=== PATIENT | male | born 1960 | race Caucasian/White ===

== ENCOUNTER 2023-12-17 15:45 | Emergency (ER) | payer OTHER, SELFPAY ==
[2023-12-17 15:51] VITALS: BP 114/81
[2023-12-17 16:23] LABS: % Basophils 0.6 % (0-2); % Immature Granulocytes 0.6 % (0-0.5); % Lymphocytes 17.8 % (20.5-51.1); % Monocytes 5.8 % (1.7-9.3); % Neutrophils 73.2 % (42.2-75.2); Absolute Basophils 0.1 10^3/uL (0-0.2); Absolute Eosinophils 0.2 10^3/uL (0-0.7); Absolute Immature Granulocytes 0.1 10^3/uL (0-0.05); Absolute Lymphocytes 1.8 10^3/uL (1.2-3.4); Absolute Monocytes 0.6 10^3/uL (0.1-0.6); Absolute Neutrophils 7.3 10^3/uL (1.4-6.5); Hematocrit 45.6 % (39.0-52.0); Mean Corp Hgb Conc. 35.1 g/dL (33.0-37.0); Mean Corpuscular Hgb 30.6 pg (27.0-31.0); Mean Corpuscular Volume 87.2 fL (80.0-94.0); Nucleated Red Blood Cells % 0 % (-); Platelet Count 199 10^3/uL (130-400); Red Blood Cell Count 5.23 10^6/uL (4.70-6.10); Red Cell Dist. Width 12.4 % (11.5-14.5)
[2023-12-17 16:37] LABS: ALT (SGPT) 22 U/L (0-50); AST (SGOT) 21 U/L (17-59); Albumin 4.1 g/dl (3.5-5.0); Alkaline Phosphatase 78 U/L (38-126); Blood Urea Nitrogen 23 mg/dl (9-20); Calcium 10.5 mg/dl (8.4-10.2); Carbon Dioxide 21 mmol/L (22-30); Chloride 100 mmol/L (98-107); Glucose 238 mg/dl (70-99); Potassium 4.9 mmol/L (3.5-5.1); Sodium 137 mmol/L (135-145); Total Bilirubin 0.7 mg/dl (0.2-1.3); Total Protein 6.9 g/dl (6.3-8.2); eGFR > 60.00
[2023-12-17 16:40] LABS: COVID-19 Antigen Negative (Negative)
--- NOTE | 2023-12-17 18:05 | ED.GENMED ---
History of Present Illness
General
Chief Complaint: Breathing Problem
Source: patient
Time Seen by Provider: 12/17/23 17:32
Travel History
Have you had any contact with someone who has COVID-19?: No
Do you have any symptoms of coronavirus? Fever > 100 degrees, chills, cough, shortness of breath, sore throat, loss of taste or smell, muscle aches, or headache?: Yes
Symptoms:: sob
History of Present Illness
History of Present Illness:
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 Triage states that patient experienced shortness of breath at noon,
notes that he woke up at noon today which is when he started to feel unwell but overall states he does not feel short of breath it is more of a overall fatigue. Patient notes that his blood sugars were elevated at the battery repairer and that he
feels as if he has been urinating more frequently as well as been experiencing polydipsia. Patient denies any fevers, chills, rigors, nausea, vomiting, bowel changes, chest pain, palpitations, diaphoresis, exertional dyspnea, orthopnea, lower
extremity edema. Overall patient was a somewhat difficult historian, unable to tell me the name of his battery repairer or elaborate on his symptoms any further. He does note some recent difficulty in controlling his diabetes and states that he was
given a new type of monitor to watch his blood sugars as he had not been readily compliant with fingerstick checks.
Past History
Past History
ED Past Medical History: HTN and IDDM
ED Past Surgical History: Tonsilectomy
Patient has exhibited threatening behavior?: No
PSI?: No
Social History
Tobacco: Non-smoker
Alcohol: Occasional
Drug: None
Personal: Single
Living: with family
Review of Systems
Review of Systems
All Other Systems: ROS reviewed and negative except as documented in HPI and ROS
Phy Exam
Physical Exam
Physical Exam:
GENERAL: Alert , in no apparent distress, appears older than stated age
EYE: Clear conjunctiva
NECK: Supple
ENT: o/p clr, mmm.
CARDIAC: Borderline tachycardic rate and rhythm
LUNGS: Clear breath sounds bilaterally, no acute respiratory distress, no wheezes/rales/rhonchi
ABDOMEN: Soft, without focal tenderness, no r/g, no cvat
NEUROLOGICAL: Alert and orientedx3
SKIN: Warm and dry, skin intact.
MUSCULOSKELETAL: No edema, well perfused.
PSYCH: Normal and appropriate interaction.
Scores
Heart Failure Risk
Heart Failure Risk Score: Not Applicable
Heart Score for Chest Pain Patients
STEMI patient?: Not applicable
Withdrawal Assessment of Alcohol
Withdrawal Assessment Completed?: Not applicable
Course
Orders/Labs/Results
Orders:
Orders
12/17/23 16:04
COVID-19 Antigen Urgent
Source: Nasal Swab
Complete Blood Count/With Diff Urgent
Comprehensive Metabolic Panel Urgent
Influenza A+B Rapid Molecular Urgent
MIKKI Source: Nasal Swab
Specimen Description:
12/17/23 17:46
Urinalysis Reflex To Culture Urgent
0.9% Sodium Chloride 1000 ml [Nss] 1,000 ml IV BOLUS
12/17/23 17:47
Electrocardiogram (*1) Urgent
Reason for Study: Shortness of Breath
EKG- Treatment ONCE
CR Chest - 2 Views Urgent
Comment:
Reason For Exam: fatigue
12/17/23 18:10
0.9% Sodium Chloride 1000 ml [Nss] 1,000 ml IV BOLUS
12/17/23 18:17
B-Hydroxybutyrate Urgent
Abnormal Lab Results
12/17/23 12/17/23
16:04 18:17
MPV 11.0 H fL
(7.4-10.4)
Abs Immat Gran (auto) 0.1 H 10^3/uL
(0-0.05)
Absolute Neuts (auto) 7.3 H 10^3/uL
(1.4-6.5)
Immature Gran % 0.6 H %
(0-0.5)
Lymphocytes % 17.8 L %
(20.5-51.1)
Carbon Dioxide 21 L mmol/L
(22-30)
BUN 23 H mg/dl
(9-20)
Glucose 238 H mg/dl
(70-99)
Calcium 10.5 H mg/dl
(8.4-10.2)
B-Hydroxybutyrate 0.32 H mmol/L
(0.02-0.27)
12/17/23 16:04
12/17/23 16:04
Vital Signs
Initial and Last Documented VS:
Initial Vital Signs
Temp Pulse Resp BP Pulse Ox
98.2 F 108 18 114/81 99
12/17/23 15:51 12/17/23 15:51 12/17/23 15:51 12/17/23 15:51 12/17/23 15:51
Last Documented Vital Signs
Temp Pulse Resp BP Pulse Ox
98.2 F 89 19 105/79 97
12/17/23 15:51 12/17/23 19:45 12/17/23 19:45 12/17/23 20:18 12/17/23 20:18
Bolter Helper consulted with Physician
Bolter Helper consulted with physician?: Yes
Name of Physician Consulted: Romy
MDM/Problems Addressed
Differential Diagnosis Includes:
Diabetic complications such as DKA, HHNK, hyperglycemia without acidosis, UTI, COVID or other viral etiology
MDM/Problems Addressed:
63-year-old male present emergency department for evaluation at the request of his battery repairer but overall the history is a little bit unclear as patient reportedly said he felt short of breath but upon questioning he is denying shortness of
breath and only stating he just did not feel very well. Patient was discussing his blood sugars and that that was the reason for being sent to the hospital as they were not under control. Patient states in the office his blood sugar was around
250-260. Labs have been initiated from triage and do reveal a glucose of 238. Patient does have an anion gap of 16 and bicarb is slightly low at 21. COVID flu testing were negative. Will add on a urinalysis, beta hydroxybutyrate. Will treat
with fluids for the time being. Reassessment following.
*Critical Care Note
Total Time (30-74mins, 75-104mins- exclusive of procedures): Not Applicable
Patient Management
Discussion with other providers: PCP
Escalation/DeEscalation of care consider admission/obs:
Patient's remaining labs are largely unremarkable. He was given IV fluids here, chest x-ray unremarkable patient states he feels better. Overall I do feel it is reasonable for patient to be discharged home and continued outpatient workup and close
glucose monitoring. I notified patient's primary care physician about workup in the ED to help facilitate continued outpatient management. Patient and family are aware of return precautions but otherwise stable for discharge home.
ED Attending Note
-
Portions of this chart may have been created with voice recognition software.� Occasional wrong word or��sound alike� substitutions may have occurred due to the inherent limitations of voice recognition software.
Discharge Plan
Departure
Patient Disposition: Home (Routine Discharge)
Date of Disposition: 12/17/23
Time of Disposition: 20:10
Patient with high blood pressure during this ER visit?: No
Discharge Problem:
Diabetes mellitus with hyperglycemia
Instructions: Diabetes and diet
Prescriptions:
No Action
aspirin 325 mg Tablet
325 mg PO DAILY
Prevagen 10 MG capsule
1 cap PO WEEKLY
insulin aspart U-100 [Novolog FlexPen U-100 Insulin] 100 unit/mL (3 mL) Insulin Pen
14 units SC AC 30 Days Qty: 12.6 0RF
insulin glargine [Lantus U-100 Insulin] 1,000 UNITS/10 ML solution
35 unit SC HS 30 Days Qty: 10.5 0RF
metoprolol tartrate 25 MG tablet
25 mg PO BID 30 Days Qty: 60 0RF
insulin glargine [Lantus U-100 Insulin] 100 unit/mL solution
35 unit SC QPM Qty: 10 0RF
Referrals:
Bria Williamson MD [Family Provider] -
Interventions
Interventions:
*Risk Screen - Suicide Last Done: 12/17/23 15:51
*General Assessment Last Done: 12/17/23 15:51
*Neglect/Abuse Screening Last Done: 12/17/23 15:51
*ED COVID-19 Vaccine History Last Done: 12/17/23 15:51
ED- Cardiac Assessment Last Done: 12/17/23 18:20
ED- Pulmonary Assessment Last Done: 12/17/23 18:20
[2023-12-17] MEDS: NSS 1000 IV (18:18)
[2023-12-17 18:47] LABS: B-Hydroxybutyrate 0.32 mmol/L (0.02-0.27)
[2023-12-17 20:18] VITALS: BP 105/79
== END 2023-12-17 20:36 | disposition home or self-care (01) ==
LOC: EMR 15:45
PROVIDERS: Emergency Medicine; Physician Assistant Medical; EMERGENCY PHYSICIAN Emergency Medicine; FAMILY PHYSICIAN Emergency Medicine
DX: E11.65 Type 2 diabetes mellitus with hyperglycemia (principal); Z11.52 Encounter for screening for COVID-19; Z79.4 Long term (current) use of insulin
CPT/HCPCS: 99285; 96360; 71046; 80053; 82010; 85025; 87502; 87811; 93005

== ENCOUNTER 2024-04-28 21:07 | Emergency (ER) | payer OTHER, SELFPAY ==
[2024-04-28 21:28] VITALS: BP 90/59
[2024-04-28 21:39] LABS: Glucose - Point of Care 152 mg/dl (70-99)
[2024-04-28 21:46] LABS: % Basophils 0.4 % (0-2); % Eosinophils 2.3 % (0-6); % Immature Granulocytes 0.4 % (0-0.5); % Lymphocytes 13.5 % (20.5-51.1); % Monocytes 4.7 % (1.7-9.3); % Neutrophils 78.7 % (42.2-75.2); Absolute Eosinophils 0.2 10^3/uL (0-0.7); Absolute Lymphocytes 1.2 10^3/uL (1.2-3.4); Absolute Monocytes 0.4 10^3/uL (0.1-0.6); Absolute Neutrophils 7.1 10^3/uL (1.4-6.5); Hematocrit 44.4 % (39.0-52.0); Hemoglobin 15.8 g/dL (13.0-18.0); Mean Corp Hgb Conc. 35.6 g/dL (33.0-37.0); Mean Corpuscular Volume 84.3 fL (80.0-94.0); Mean Platelet Volume 10.6 fL (7.4-10.4); Nucleated Red Blood Cells % 0 % (-); Platelet Count 186 10^3/uL (130-400); Red Blood Cell Count 5.27 10^6/uL (4.70-6.10); Red Cell Dist. Width 12.7 % (11.5-14.5)
[2024-04-28 22:20] LABS: Glucose - Point of Care 182 mg/dl (70-99)
[2024-04-28 22:30] VITALS: BMI 31.7
[2024-04-28 22:47] VITALS: BP 102/57
[2024-04-28 23:00] VITALS: BP 105/73
[2024-04-28 23:16] LABS: ALT (SGPT) 33 U/L (0-50); AST (SGOT) 26 U/L (17-59); Albumin 4.1 g/dl (3.5-5.0); Alkaline Phosphatase 74 U/L (38-126); Blood Urea Nitrogen 14 mg/dl (9-20); Calcium 9.3 mg/dl (8.4-10.2); Carbon Dioxide 24 mmol/L (22-30); Chloride 103 mmol/L (98-107); Estimated Creatinine Clearance 103 ml/min; Glucose 167 mg/dl (70-99); Potassium 4.3 mmol/L (3.5-5.1); Sodium 136 mmol/L (135-145); Total Bilirubin 0.6 mg/dl (0.2-1.3); Total Protein 6.8 g/dl (6.3-8.2); eGFR > 60.00
[2024-04-28 23:23] LABS: Troponin I < 0.012 ng/ml
[2024-04-29] VITALS (11 sets, daily range): BP systolic 101–125; BP diastolic 76–89; PULSE 85–95
--- NOTE | 2024-04-29 02:27 | ED.GENMED ---
History of Present Illness
General
Chief Complaint: Dizziness
Source: patient and family
Exam Limitations: none
Time Seen by Provider: 04/28/24 23:00
Nursing documentation reviewed up to this point in time: agreed with
History of Present Illness
History of Present Illness:
63-year-old male past medical history of diabetes presenting to the emergency department today with concerns of lightheadedness dizziness. He claims that he lost his balance after feeling dizzy earlier today and fell against the wall. He had
trouble standing up due to his underlying balance issues called EMS that brought him into the ER. He denies any ongoing symptoms at this point otherwise feels well. Denies any chest pain palpitations or shortness of breath otherwise.
Past History
Past History
ED Past Medical History: HTN and IDDM
ED Past Surgical History: Tonsilectomy
Patient has exhibited threatening behavior?: No
PSI?: No
Social History
Tobacco: Non-smoker
Alcohol: Occasional
Drug: None
Personal: Single
Living: with family
Review of Systems
Review of Systems
Allergies reviewed?: Yes
All Other Systems: ROS reviewed and negative except as documented in HPI and ROS
Phy Exam
Physical Exam
Physical Exam:
GENERAL: Alert , in no apparent distress
EYE: pupils equal and reactive
NECK: Supple, no significant adenopathy.
ENT: o/p clr, mmm.
CARDIAC: Regular rate and rhythm .
LUNGS: Clear breath sounds bilaterally, no acute respiratory distress, no wheezes/rales/rhonchi
ABDOMEN: Soft, without focal tenderness, no r/g, no cvat
NEUROLOGICAL: Alert and oriented, no focal neuro deficits
SKIN: Warm and dry, skin intact.
MUSCULOSKELETAL: No edema, well perfused.
PSYCH: Normal and appropriate interaction.
Course
Orders/Labs/Results
Orders:
Orders
04/28/24 21:32
Electrocardiogram (*1) Urgent
Reason for Study: Syncope
EKG- Treatment ONCE
04/28/24 21:39
Complete Blood Count/With Diff Urgent
04/28/24 22:34
Comprehensive Metabolic Panel Urgent
Troponin I Urgent
04/28/24 23:41
Orthostatic VS- Treatment ONCE
Vital Signs- Treatment ONCE
Frequency: Once
Abnormal Lab Results
04/28/24 04/28/24 04/28/24
21:31 21:39 22:19
MPV 10.6 H fL
(7.4-10.4)
Absolute Neuts (auto) 7.1 H 10^3/uL
(1.4-6.5)
Neutrophils % 78.7 H %
(42.2-75.2)
Lymphocytes % 13.5 L %
(20.5-51.1)
Glucose
POC Glucose 152 H mg/dl 182 H mg/dl
(70-99) (70-99)
04/28/24
22:34
MPV
Absolute Neuts (auto)
Neutrophils %
Lymphocytes %
Glucose 167 H mg/dl
(70-99)
POC Glucose
04/28/24 21:39
04/28/24 22:34
Vital Signs
Initial and Last Documented VS:
Initial Vital Signs
Temp Pulse Resp BP Pulse Ox
97.6 F 109 19 90/59 93
04/28/24 21:28 04/28/24 21:28 04/28/24 21:28 04/28/24 21:28 04/28/24 21:28
Last Documented Vital Signs
Temp Pulse Resp BP Pulse Ox
97.6 F 109 19 90/59 93
04/28/24 21:28 04/28/24 21:28 04/28/24 21:28 04/28/24 21:28 04/28/24 21:28
MDM/Problems Addressed
MDM/Problems Addressed:
63-year-old male presenting to the emergency department today with concerns of an episode where he felt dizzy lost his balance and slid down the wall at his home called 911 to help him get up and was brought to the ER denies any ongoing symptoms no
chest pain shortness of breath or additional concerns at this point feels normal. EKG is unchanged labs unremarkable troponin negative. Negative orthostatics here. Asymptomatic for multiple hours in the ER stable for outpatient management and
close outpatient follow-up return precautions given.
*Critical Care Note
Total Time (30-74mins, 75-104mins- exclusive of procedures): Not Applicable
ED Attending Note
-
Portions of this chart may have been created with voice recognition software.� Occasional wrong word or��sound alike� substitutions may have occurred due to the inherent limitations of voice recognition software.
Discharge Plan
Departure
Patient Disposition: Home (Routine Discharge)
Date of Disposition: 04/29/24
Time of Disposition: 02:29
Patient with high blood pressure during this ER visit?: No
Condition: Good
Covid-19: Not Applicable
Discharge Problem:
Lightheadedness
Instructions: Dizziness, Nonvertigo, (DC)
Prescriptions:
No Action
aspirin 325 mg Tablet
325 mg PO DAILY
Prevagen 10 MG capsule
1 cap PO WEEKLY
insulin aspart U-100 [Novolog FlexPen U-100 Insulin] 100 unit/mL (3 mL) Insulin Pen
14 units SC AC 30 Days Qty: 12.6 0RF
insulin glargine [Lantus U-100 Insulin] 1,000 UNITS/10 ML solution
35 unit SC HS 30 Days Qty: 10.5 0RF
metoprolol tartrate 25 MG tablet
25 mg PO BID 30 Days Qty: 60 0RF
insulin glargine [Lantus U-100 Insulin] 100 unit/mL solution
35 unit SC QPM Qty: 10 0RF
Referrals:
Bria Williamson MD [Family Provider] -
Activity Restrictions/Additional Instructions:
You came to the emergency department today with concerns of dizziness and losing her balance. Here your labs are normal and your vital signs improving. Please follow close with your primary care doctor. Return to the emergency department for any
worsening, new or concerning symptoms.
Interventions
Interventions:
*Risk Screen - Suicide Last Done: 04/28/24 22:23
*General Assessment Last Done: 04/28/24 22:23
*Neglect/Abuse Screening Last Done: 04/28/24 22:23
*ED COVID-19 Vaccine History Last Done: 04/28/24 22:23
ED- Neurological Assessment Last Done: 04/28/24 22:23
ED Swallowing Screen Last Done: 04/29/24 02:00
Discharge Date and Time
Print Language: GEORGIAN
== END 2024-04-29 03:00 | disposition home or self-care (01) ==
LOC: EMR 21:07
PROVIDERS: EMERGENCY PHYSICIAN Emergency Medicine; FAMILY PHYSICIAN Emergency Medicine
DX: R42 Dizziness and giddiness (principal); E11.9 Type 2 diabetes mellitus without complications
CPT/HCPCS: 99284; 80053; 82962; 84484; 85025; 93005

== ENCOUNTER 2024-05-10 03:30 | Inpatient (IN) | payer OTHER, SELFPAY ==
[2024-05-09 22:13] VITALS: BMI 31.1
[2024-05-09 22:14] VITALS: BP 102/78
[2024-05-09 22:23] LABS: Glucose - Point of Care 181 mg/dl (70-99)
--- NOTE | 2024-05-09 23:16 | PHANOTE ---
Med Rec Note:
Novolog left unconfirmed due to Pt stated he takes 30 units, but per latest notes in [facility] he's supposed to be on 4 units with meals.
[2024-05-10] VITALS (13 sets, daily range): BP systolic 90–144; BP diastolic 64–99; PULSE 89–121; BMI 31.2
[2024-05-10] MEDS: NSS 1000 IV ×4 (00:23→16:52)
[2024-05-10 00:33] LABS: % Basophils 0.3 % (0-2); % Eosinophils 0.5 % (0-6); % Immature Granulocytes 0.3 % (0-0.5); % Lymphocytes 11.1 % (20.5-51.1); % Monocytes 4.1 % (1.7-9.3); % Neutrophils 83.7 % (42.2-75.2); Absolute Lymphocytes 0.9 10^3/uL (1.2-3.4); Absolute Monocytes 0.3 10^3/uL (0.1-0.6); Absolute Neutrophils 6.7 10^3/uL (1.4-6.5); Hematocrit 45.7 % (39.0-52.0); Hemoglobin 15.9 g/dL (13.0-18.0); Mean Corp Hgb Conc. 34.8 g/dL (33.0-37.0); Mean Corpuscular Hgb 29.8 pg (27.0-31.0); Mean Corpuscular Volume 85.6 fL (80.0-94.0); Mean Platelet Volume 10.9 fL (7.4-10.4); Nucleated Red Blood Cells % 0 % (-); Platelet Count 165 10^3/uL (130-400); Red Blood Cell Count 5.34 10^6/uL (4.70-6.10)
--- NOTE | 2024-05-10 00:37 | ED.GENMED ---
History of Present Illness
General
Chief Complaint: Fall
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
Exam Limitations: none
Time Seen by Provider: 05/09/24 23:37
Nursing documentation reviewed up to this point in time: agreed with
History of Present Illness
History of Present Illness:
This is a 63-year-old gentleman who has history of insulin requiring diabetes, hyperlipidemia, hypertension who presents with intermittent lightheadedness, dizziness that is much worse with standing, worse with ambulation and he has suffered several
falls over the past week and a half.
Evaluated in this ED April 28 with December similar complaint of lightheadedness, losing his balance upon standing and falling against a wall. Noted to be mildly hypotensive during that visit but orthostatic vital signs reportedly negative. Labs
are unremarkable save for elevated random glucose. He was discharged to home.
Since that visit patient has suffered a loss of balance and fall onto his knees several days ago sustaining abrasions to bilateral knees.
Tonight after getting out of his car he felt lightheaded, lost his balance and fell again onto his knees and admits to striking his head mildly on the ground. No loss of consciousness.
Patient states he has been eating and drinking normally and has added Gatorade on a daily basis.
He does admit to mild fatigue, generalized weakness intermittently and admits that he did not get out of bed at all yesterday as he just was not feeling well, overall weak.
He has not had a fever nor chills, no cough nor shortness of breath, no chest pain or palpitations, denies headache, denies neck nor back pain.
He does note abrasions to bilateral knees after fall a few days ago. He denies knee pain nor hip pain, no joint pain with ambulation.
Unsure as to his last Tdap.
Along with insulin he has been maintained on Mounjaro and admits to at least 14 pound weight loss over the past 6 months.
He takes no anticoagulants save for aspirin.
Past History
Past History
ED Past Medical History: HTN, Hypercholesterolemia, IDDM and Other (Right bundle branch block, diabetic peripheral neuropathy)
ED Past Surgical History: Tonsilectomy
Patient has exhibited threatening behavior?: No
PSI?: No
Social History
Tobacco: Non-smoker
Alcohol: Occasional
Drug: None
Personal: Single
Living: with roommate
Employment: Retired
Family History
Family History: Other (Noncontributory)
Phy Exam
Physical Exam
Physical Exam:
GENERAL: 63-year-old gentleman appears his stated age, awake and alert, pleasant, appears in no acute distress. Moderately disheveled. Cooperative.
EYE: pupils equal and reactive. anicteric. The head is normocephalic, atraumatic.
NECK: Supple, nontender, no meningismus, no significant adenopathy.
ENT: posterior pharynx is clear, oral mucosa is mildly dry. TM clear b/l, nares patent.
CARDIAC: Regular rate and rhythm. no murmur.
LUNGS: Clear breath sounds bilaterally, no acute respiratory distress, no wheezes/rales/rhonchi
ABDOMEN: Soft, nondistended, without focal tenderness, no r/g, no cvat. normoactive BS.
BACK: No midline bony tenderness.
NEUROLOGICAL: Alert and oriented x3, no focal neuro deficits. Motor strength is 5/5 bilaterally. Gross sensation is intact.
SKIN: Warm and dry, mildly pale in color, subacute skin abrasions bilateral knees, left posterior elbow.
MUSCULOSKELETAL: Trace pretibial edema bilateral lower extremities. Peripheral pulses are full and equal b/l. No palpable tenderness.
PSYCH: Normal and appropriate interaction.
Course
Orders/Labs/Results
Orders:
Orders
05/09/24 23:38
Orthostatic VS- Treatment ONCE
05/09/24 23:39
Electrocardiogram (*1) Urgent
Reason for Study: Vertigo / Dizzy
EKG- Treatment ONCE
Complete Blood Count/With Diff Urgent
Comprehensive Metabolic Panel Urgent
TSH Reflex To Free T4 Urgent
Troponin I Urgent
Urinalysis Reflex To Culture Urgent
05/09/24 23:47
Tetanus/Diphth/Acelpertussis [Adacel] 0.5 ml IM .ONCE ONE
05/10/24 00:00
CT Head W/o Iv Contrast Urgent
Reason For Exam: DIZZY, FALL, HEAD INJURY
05/10/24 00:23
0.9% Sodium Chloride 500 ml [Nss] 1,000 ml IV ONCE
05/10/24 00:48
0.9% Sodium Chloride 1000 ml [Nss] 1,000 ml IV BOLUS
Abnormal Lab Results
05/09/24 05/10/24 05/10/24
22:21 00:14 00:15
MPV 10.9 H fL
(7.4-10.4)
Absolute Neuts (auto) 6.7 H 10^3/uL
(1.4-6.5)
Absolute Lymphs (auto) 0.9 L 10^3/uL
(1.2-3.4)
Neutrophils % 83.7 H %
(42.2-75.2)
Lymphocytes % 11.1 L %
(20.5-51.1)
Carbon Dioxide 21 L mmol/L
(22-30)
BUN 26 H mg/dl
(9-20)
Glucose 137 H mg/dl
(70-99)
POC Glucose 181 H mg/dl
(70-99)
05/10/24 00:14
05/10/24 00:15
Vital Signs
Initial and Last Documented VS:
Initial Vital Signs
Temp Pulse Resp BP Pulse Ox
98.5 F 115 18 102/78 99
05/09/24 22:14 05/09/24 22:14 05/09/24 22:14 05/09/24 22:14 05/09/24 22:14
Last Documented Vital Signs
Temp Pulse Resp BP Pulse Ox
98.5 F 98 37 94/69 95
05/09/24 22:14 05/10/24 00:20 05/10/24 00:20 05/10/24 00:20 05/10/24 00:26
MDM/Problems Addressed
Differential Diagnosis Includes:
Concern for orthostatic hypotension, vertigo, anemia, electrolyte abnormality, CVA, arrhythmia, thyroid disorder.
Patient noted to be mildly hypotensive. Similar low blood pressure noted on ED visit 10 days ago.
Will recheck orthostatic vital signs, will repeat labs, troponin, TSH.
Will check EKG, CT of the head.
Chronic conditions affecting care: DM and HTN
*Radiology
Radiology exam reviewed: radiology read reviewed (CT of the head shows no acute intracranial abnormality.)
*Pulse Oximetry
Patient hypoxic: no
*EKG
Interpreted by ED Provider?: Yes
Comparison EKG: no changes (Unchanged from previous April 28, 2024)
Rate: normal
Rhythm: sinus
[place]: left axis deviation
Interval: first degree heart block (Borderline first-degree heart block)
QRS Pattern: right bundle branch block
Ischemia: no ischemia
*Chainman Interpretation
Rate: normal
Interpretation: normal
Rhythm: sinus
*Critical Care Note
Total Time (30-74mins, 75-104mins- exclusive of procedures): Not Applicable
Update Note
Update Note:
Orthostatic vital signs are positive and patient is noted to be significantly unsteady while standing.
Labs show mild prerenal azotemia otherwise unremarkable. Azotemia has trended up compared to previous labs April 28. TSH is normal. Normal CBC. Negative troponin.
EKG similar and unchanged from previous.
CT of the head shows no acute intracranial abnormality but does show chronic small vessel ischemic disease and chronic lacunar infarcts in the right basal ganglia, similar findings noted on CT of the head 2021.
Symptoms could certainly be orthostasis in nature but he has multiple risk factors for cerebrovascular disease and due to significant unsteadiness with standing, frequent falls he is at significant risk for recurrent falls and thus will require
acute hospitalization for further evaluation.
ED Attending Note
-
Portions of this chart may have been created with voice recognition software.� Occasional wrong word or��sound alike� substitutions may have occurred due to the inherent limitations of voice recognition software.
Discharge Plan
Departure
Patient Disposition: Admit
Date of Disposition: 05/10/24
Time of Disposition: 02:20
Admit to: Telemetry
Admit to doctor: Lon
Presentation/result/management discussed w/ accepting MD/DO: Hospitalist
Condition: Fair
Discharge Problem:
Recurrent falls, Generalized weakness, Orthostatic hypotension, subacute abrasions b/l knees, subacute abrasion left elbow
Prescriptions:
No Action
aspirin 325 mg Tablet
325 mg PO .3X WEEKLY
atorvastatin 10 mg tablet
10 mg PO DAILY@1400
metformin 1,000 mg tablet
1,000 mg PO DAILY@1400
losartan 25 mg tablet
25 mg PO DAILY@1400
Jardiance 10 mg tablet
10 mg PO DAILY@1400
Mounjaro 5 mg/0.5 mL pen injector
5 mg SC WE
insulin glargine [Lantus U-100 Insulin] 1,000 UNITS/10 ML solution
30 unit SC HS
insulin aspart U-100 [Novolog FlexPen U-100 Insulin] 100 unit/mL (3 mL) insulin pen
4 units SC MEALS
Patient Comments:
05/09/2024: Pt stated he takes 30 units, but per latest notes in [facility] he's supposed to be on 4 units with meals.
Referrals:
Bria Williamson MD [Family Provider] -
Interventions
Interventions:
*Risk Screen - Suicide Last Done: 05/09/24 22:14
*General Assessment Last Done: 05/09/24 22:14
*Neglect/Abuse Screening Last Done: 05/09/24 22:14
ED- Fall Risk Assessment Last Done: 05/10/24 00:26
*ED COVID-19 Vaccine History Last Done: 05/09/24 22:14
ED-Musculoskeletal Assessment Last Done: 05/09/24 22:13
ED- Neurological Assessment Last Done: 05/09/24 22:13
ED-Skin Assessment Last Done: 05/09/24 22:13
Discharge Date and Time
Print Language: SPANISH
[2024-05-10 00:48] LABS: ALT (SGPT) 33 U/L (0-50); AST (SGOT) 26 U/L (17-59); Albumin 4.5 g/dl (3.5-5.0); Alkaline Phosphatase 74 U/L (38-126); Blood Urea Nitrogen 26 mg/dl (9-20); Carbon Dioxide 21 mmol/L (22-30); Chloride 104 mmol/L (98-107); Estimated Creatinine Clearance 90 ml/min; Glucose 137 mg/dl (70-99); Potassium 4.4 mmol/L (3.5-5.1); Sodium 139 mmol/L (135-145); Total Bilirubin 0.5 mg/dl (0.2-1.3); Total Protein 7.2 g/dl (6.3-8.2); eGFR > 60.00
[2024-05-10 01:04] LABS: Troponin I < 0.012 ng/ml
[2024-05-10] MEDS: ADACEL 0.5 ML IM (01:09)
[2024-05-10] MEDS: NSS IV (01:11)
[2024-05-10 01:23] LABS: TSH Reflex To Free T4 0.51 uIU/ml (0.47-4.68)
--- NOTE | 2024-05-10 03:12 | HPS.HSE ---
Family Physician
-
Family Physician: Bria Williamson MD
Chief Complaint
-
weakness, lightheaded and falls
History of Present Illness
HPI
63M HX IRDM, HLD, HTN , Obesity, mild cognitive impairment seen at ER for evaluation of intermittent lightheadedness
Intermittent dizzy spells with falls
- associated with standing and walking
- unsteady on fet with weakness
- report multiple falls BENEFITS ADVISOR over last week
- Tonight , he felt lightheadedness after getting out of car , had fall with striking head on the ground.
- denied No loss of consciousness.
ROS
Denied CP
Denied SoB
Denied N/V/D
Medical History
Past Medical History
Past Medical History: Reports HTN
Past Surgical History: Reports Tonsilectomy
Social History
Tobacco: Non-smoker
Alcohol: None
Drug: None
Personal: Single
Living: With [facility] ([place])
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
Family History
Family History: Early CAD (father Sarah 58 ) and Other (Brother age 80 unsure)
Allergies / Home Medications
Allergies reflects when Allergies were last updated in [facility].
Home Medications with original date entered in [facility]
Allergy/Medication List:
Allergies
Allergy/AdvReac Type Severity Reaction Status Date / Time
No Known Allergies Allergy Unverified 12/30/21 03:11
Home Medications
insulin aspart U-100 100 unit/mL (3 mL) subcutaneous pen (Novolog FlexPen U-100 Insulin aspart) 20 units (0.2 mL) SC AC 01/05/22
metoprolol tartrate 25 mg tablet 25 mg PO BID 01/05/22
insulin glargine 100 unit/mL subcutaneous solution (Lantus U-100 Insulin) 35 units (0.35 mL) SC DAILY@2200 01/07/22
Pregaven 1 cap PO DAILY 12/20/22
aspirin 325 mg tablet 325 mg PO DAILY 12/20/22
Review of Systems
-
History Source: Patient
A 12 point ROS was completed and negative except as noted: Yes
Constitutional: Reports Fatigue and Other (Unkempt appearance-reports showers once a week)
EENT: Reports Other (Dry mouth); Denies Sore Throat or Runny Nose
Respiratory: Denies Cough or Trouble Breathing
Cardiac: Denies Chest Pain, Diaphoresis, Palpitations or Syncope
Abdomen/GI: Denies Abdominal Pain, Nausea, Vomiting, Diarrhea, Constipated or Bloody Stools
: Denies Dysuria, Frequency, Flank Pain, Incontinence, Difficulty Voiding, Bleeding or Dark Urine
Musculoskeletal: Denies Joint Pain, Joint Swelling or Edema
Skin: Reports Other (Abrasion to left knee, healing contusion to right lower extremity, dried skin scales to right lower extremity); Denies Itching or Rash
Neurological: Reports Dizzy and Weakness (Generalized); Denies Headache
Endocrine: Denies Polyuria or Polydipsia
Hematologic/Lymphatic: Reports No Symptoms
Psych: Reports Calm
Physical Exam
Vital Signs
Vital Signs
Temp Pulse Resp BP Pulse Ox
98.5 F 93 18 113/77 91
05/09/24 22:14 05/10/24 01:00 05/10/24 01:00 05/10/24 01:00 05/10/24 01:00
Physical Exam
General: Comfortable, Conversant, Obese and Other (Unkept appearance); No Pain, Fever or Chills
HEENT: NormoCephalic, Anicteric and Other (Dry oral mucosa)
Respiratory: Clear; No Wheezes, Rales or Rhonchi
Cardiac: S1/S2; No Murmur, Rub, Gallop or Peripheral Edema
Breast: Deferred by me
GI: Soft, Non Tender, Non Distended, Normal Bowel Sounds, No Hepatosplenomegaly and Other (Protuberant abdomen)
Rectal: Deferred by Provider
Musculoskeletal: No Clubbing, No Cyanosis and No Edema
Skin: Warm, Dry and Other ( skin abrasions bilateral knees, left posterior elbow.); No Rash
Neuro: AO x 3 (Poor insight), No Motor Deficits and Nonfocal/grossly intact; No Slurred Speech, Facial Droop or Tremors
Psych: Calm
Laboratory Results
-
05/10/24 00:14
05/10/24 00:15
Laboratory Results
Total Bilirubin 0.5 mg/dl (0.2-1.3) 05/10/24 00:15
AST 26 U/L (17-59) 05/10/24 00:15
ALT 33 U/L (0-50) 05/10/24 00:15
Alkaline Phosphatase 74 U/L (38-126) 05/10/24 00:15
Troponin I < 0.012 ng/ml 05/10/24 00:14
Data Reviewed
-
CT Scan: Report Reviewed by me
Medical Tests (Nuc Med, Echo, EKG etc): Report Reviewed by me
Lab Data: Labs Reviewed by me
Old Records: Reviewed
Impression/Plan
-
Reviewed VS: Afebrile, HR 90s BP 90/75 --> 113/77 POx mid 90s
Data
Unremarkable CBC
CO2 21
BUN 26
unremarkable Cr and eGFR
NEG TPNI
TSH 0.51
BG 181
EKG report
NORMAL SINUS RHYTHM
LEFT AXIS DEVIATION
RIGHT BUNDLE BRANCH BLOCK
ABNORMAL ECG
WHEN COMPARED WITH ECG OF 28-APR-2024 21:49,
NO SIGNIFICANT CHANGE WAS FOUND
HCT: unremarkable for acute pathology
Last hospitalist admission: 12/20/23- 12/22/23 PDXs;
1. Hyperglycemia.
2. History of noncompliant diabetic type 2.
ASSESSMENT & PLAN
Frequent Falls
Associated with hypotension
POS postural hypotension .
Mildly dehydrated suspect osmotic diuresis to hyperglycemia
- s/p NS 2 L at ER
- cont. IV NS @ 80/H
- BG control
- PT/OT
- Trend BP and BG
Hyperglycemia
IRDMT2
- held metformin
- held Jardiance
- cont BENEFITS ADVISOR Lantus/ NovoLog
- add ISS low
Essential HTN
- Held Losartan for now
- Trend BP
HX Mild cognitive impairment /care deficit
Obesity due to excess calorie consumption�BMI 33.2 kg
DVT Px: LMWH
Code: Full
IP TLM
[2024-05-10 04:09] LABS: Urine Albumin Negative (Neg - Trace); Urine Bilirubin 1+ (Negative); Urine Character Clear (Clear); Urine Color Yellow; Urine Glucose 3+ (Negative); Urine Ketone 1+ (Negative); Urine Leukocyte Negative (Negative); Urine Nitrite Negative (Negative); Urine Occult Blood Negative (Negative); Urine Specific Gravity 1.015 (<1.030); Urine Urobilinogen Negative (Neg - 1+)
[2024-05-10 07:59] LABS: Glucose - Point of Care 85 mg/dl (70-99)
[2024-05-10 08:35] LABS: Hematocrit 41.6 % (39.0-52.0); Hemoglobin 14.3 g/dL (13.0-18.0); Mean Corp Hgb Conc. 34.4 g/dL (33.0-37.0); Mean Corpuscular Volume 87.2 fL (80.0-94.0); Mean Platelet Volume 11.3 fL (7.4-10.4); Platelet Count 146 10^3/uL (130-400); Red Blood Cell Count 4.77 10^6/uL (4.70-6.10)
[2024-05-10 08:45] LABS: Blood Urea Nitrogen 20 mg/dl (9-20); Carbon Dioxide 21 mmol/L (22-30); Estimated Creatinine Clearance 116 ml/min; eGFR > 60.00
[2024-05-10 08:56] LABS: Chloride 107 mmol/L (98-107); Glucose 91 mg/dl (70-99); Potassium 3.9 mmol/L (3.5-5.1); Sodium 137 mmol/L (135-145)
--- NOTE | 2024-05-10 09:07 | W.PN.HOSP.TC ---
Today's Communication/Plan
-
PT OT
Orthostatic vitals
Decrease Lantus
Assessment / Plan
Assessment / Plan
63-year-old male presented to the hospital when he was carrying groceries and bumped on the curb and fell. He also fell last week. He had scraped bilateral knees. He has intermittent dizziness spells and falls.
On examination awake alert oriented
Cardiovascular system S1-S2 appreciated
Chest clear to auscultation
Abdomen soft and nontender
No pedal edema
Bilateral knee With Abrasion Right Older Left Knee newer
Neuro exam nonfocal
# Frequent falls
Loss of balance reported
Normal saline given in the ER
Orthostatic blood pressures
PT OT check B12 level
Possibly he has diabetic neuropathy
#Type 2 diabetes
On Jardiance, Lantus 30 units at night, NovoLog 4 units before meals, metformin 1000 mg daily as outpatient
Also on Mounjaro
Hemoglobin A1c pending
# Hyperlipidemia-continue atorvastatin
# Essential hypertension-hold losartan for now
# Mild cognitive impairment
# Obesity per BMI criteria
# Chronic right bundle branch block
# DVT prophylaxis-Lovenox
# CODE STATUS-full code
PT OT
Anticipated Discharge: Within 24 hours
Subjective/Interval History
-
Date of Service: May 10, 2024
Objective Data
-
Labs:
Laboratory Results
05/10/24 05/10/24 05/10/24
00:14 00:15 06:48
WBC 8.0 6.0
Hgb 15.9 14.3
Hct 45.7 41.6
Plt Count 165 146
Sodium 139 137
Potassium 4.4 3.9
Chloride 104 107
Carbon Dioxide 21 L 21 L
BUN 26 H 20
Creatinine 0.9 0.7
Glucose 137 H 91
Calcium 10.0 9.0
Total Bilirubin 0.5
AST 26
ALT 33
Alkaline Phosphatase 74
Vital Signs:
Vital Signs
Temp Pulse Resp BP Pulse Ox
98.3 F 101 16 134/91 99
05/10/24 07:00 05/10/24 07:00 05/10/24 07:00 05/10/24 07:00 05/10/24 07:00
[2024-05-10] MEDS: TYLENOL 650 MG PO ×2 (10:24→17:35)
[2024-05-10 11:06] LABS: Glycohemoglobin (HgbA1c) 6.9 % (4.0-5.6)
[2024-05-10 11:24] LABS: Glucose - Point of Care 112 mg/dl (70-99)
[2024-05-10] MEDS: LIPITOR 10 MG PO (13:42)
[2024-05-10] MEDS: JARDIANCE 10 MG PO (13:42)
[2024-05-10] MEDS: GLUCOPHAGE 1000 MG PO (13:43)
[2024-05-10 15:21] LABS: Vitamin B12 320 pg/ml (239-931)
--- NOTE | 2024-05-10 16:07 | CM ---
Reviewed the chart notes and spoke with the patient at the bedside. The patient resides with a friend in a one bedroom first floor apartment with one step to enter. Per patient, he pays $400/month and the friend covers the other $1250/month. The
patient reports no DME/VN/SNF. The patient confirmed his pharmacy of choice is the [facility]. continues to be available to patient/family and is monitoring medical plan for needs at discharge.
Plan: Discharge plans will depend on the patient's progress. Patient may benefit from VN/PT.
[2024-05-10] MEDS: VITAMIN B-12 1000 MCG PO (16:28)
[2024-05-10 16:30] LABS: Glucose - Point of Care 122 mg/dl (70-99)
[2024-05-10] MEDS: LOVENOX 40 MG SC (17:35)
[2024-05-10] MEDS: NOVOLOG FLEXPEN 2 UNITS SC (17:37)
[2024-05-10 21:15] LABS: Glucose - Point of Care 109 mg/dl (70-99)
[2024-05-10] MEDS: LANTUS 0.25 UNITS SC (21:43)
[2024-05-11] VITALS (7 sets, daily range): BP systolic 124–144; BP diastolic 77–91; PULSE 97–107; BMI 30.9
[2024-05-11] MEDS: NSS 1000 IV (05:08)
[2024-05-11 07:23] LABS: Glucose - Point of Care 85 mg/dl (70-99)
[2024-05-11] MEDS: NOVOLOG FLEXPEN 2 UNITS SC ×3 (08:30→17:03)
[2024-05-11] MEDS: VITAMIN B-12 1000 MCG PO (08:30)
[2024-05-11] MEDS: TYLENOL 650 MG PO ×2 (09:47→17:56)
--- NOTE | 2024-05-11 11:24 | W.PN.HOSP.TC ---
Today's Communication/Plan
-
PT OT
Stop IV fluids
Encourage out of bed
Discharge planning
Assessment / Plan
Assessment / Plan
63-year-old male presented to the hospital when he was carrying groceries and bumped on the curb and fell. He also fell last week. He had scraped bilateral knees. He has intermittent dizziness spells and falls.
On examination awake alert oriented
Cardiovascular system S1-S2 appreciated
Chest clear to auscultation
Abdomen soft and nontender
No pedal edema
Bilateral knee With Abrasion Right Older Left Knee newer
Neuro exam nonfocal
# Frequent falls
Loss of balance reported
Normal saline given in the ER-Stop
Orthostatic blood pressures
PT OT
Replace low normal B12
Possibly he has diabetic neuropathy
# Wounds on knees-wound care evaluation tomorrow
Treat with Bactroban ointment and dressing changes
#Type 2 diabetes
On Jardiance, Lantus 30 units at night, NovoLog 4 units before meals, metformin 1000 mg daily as outpatient
Continue NovoLog 2 units before meals and Lantus to be decreased to 20 units today.
Also on Mounjaro
Hemoglobin A1c 6.9
# Hyperlipidemia-continue atorvastatin
# Essential hypertension-hold losartan for now
# Mild cognitive impairment
# Obesity per BMI criteria
# Chronic right bundle branch block
# DVT prophylaxis-Lovenox
# CODE STATUS-full code
PT OT
Discussed with nursing
Anticipated Discharge: Within 24 hours
Subjective/Interval History
-
Date of Service: May 11, 2024
Objective Data
-
Vital Signs:
Vital Signs
Temp Pulse Resp BP Pulse Ox
98.0 F 92 18 124/79 96
05/11/24 07:00 05/11/24 07:00 05/11/24 07:00 05/11/24 07:00 05/11/24 07:00
I&O
05/10/24 05/11/24 05/12/24
06:59 06:59 06:59
Intake Total 3500 / 3500
Output Total 3320 / 3320
Balance 180 / 180
[2024-05-11 11:42] LABS: Glucose - Point of Care 113 mg/dl (70-99)
[2024-05-11] MEDS: JARDIANCE 10 MG PO (13:14)
[2024-05-11] MEDS: GLUCOPHAGE 1000 MG PO (13:14)
[2024-05-11] MEDS: LIPITOR 10 MG PO (13:14)
[2024-05-11 16:48] LABS: Glucose - Point of Care 100 mg/dl (70-99)
[2024-05-11] MEDS: BACTROBAN 2% OINTMENT 1 APPLIC TOPICAL ×2 (17:02→21:33)
[2024-05-11] MEDS: LOVENOX 40 MG SC (17:04)
[2024-05-11 21:26] LABS: Glucose - Point of Care 119 mg/dl (70-99)
[2024-05-11] MEDS: LANTUS 0.200000000000000011 UNITS SC (21:32)
[2024-05-12 03:11] VITALS: BP 122/71
[2024-05-12 05:33] VITALS: BMI 30.5
[2024-05-12 06:00] VITALS: BMI 30.5
[2024-05-12 06:55] VITALS: BP 138/83
[2024-05-12 06:59] LABS: Glucose - Point of Care 88 mg/dl (70-99)
[2024-05-12] MEDS: ASPIRIN 325 MG PO (08:31)
[2024-05-12] MEDS: VITAMIN B-12 1000 MCG PO (08:31)
[2024-05-12] MEDS: BACTROBAN 2% OINTMENT 1 APPLIC TOPICAL (08:31)
[2024-05-12] MEDS: NOVOLOG FLEXPEN 2 UNITS SC ×2 (08:32→12:39)
[2024-05-12] MEDS: TYLENOL 650 MG PO (08:40)
--- NOTE | 2024-05-12 09:38 | WOUNDNOTE ---
WON RN note: Patient admitted with Orthostatic hypotension, recurrent falls and weakness.
See H&P for complete history. Lives with a roommate.
PMH: Recent falls, RBBB,IDDM,HTN,Peripheral neuropathy and elevated cholesterol.
Wound Location and type/assessment: Patient admitted with: abrasions on both knees and L elbow from falling on concrete. Patient states he drank a Gatorade and thinks his blood sugar was too high causing him to get lightheaded and fall. Has
mupirocin already on order and dry dressing. Nurse Jeanette did wound care this morning.
Appetite: Good. Hgb A1c is 6.9.
Pressure redistribution devices in place: Accumax, ambulated with PT in rm. In recliner chair, elevated legs.
Plan: Continue current dressing, teaching done with patient regarding wound care, states he understands.
Updated care plan and will follow as needed.
Note to case management of equipment requested for discharge: none.
Recommend follow up at wound care center if not healing, upon discharge.
--- NOTE | 2024-05-12 11:02 | W.PN.HOSP.TC ---
Addendum entered and electronically signed by Whitney Henry MD 05/12/24 11:11:
Losartan dose decreased
Original Note:
Today's Communication/Plan
-
Discharge
Assessment / Plan
Assessment / Plan
63-year-old male presented to the hospital when he was carrying groceries and bumped on the curb and fell. He also fell last week. He had scraped bilateral knees. He has intermittent dizziness spells and falls.
On examination awake alert oriented
Cardiovascular system S1-S2 appreciated
Chest clear to auscultation
Abdomen soft and nontender
No pedal edema
Bilateral knee With Abrasion Right Older Left Knee newer
Neuro exam nonfocal
# Frequent falls
Loss of balance reported
Normal saline given in the ER-Stopped
Orthostatic blood pressures stable
PT OT
Replace low normal B12
Possibly he has diabetic neuropathy
# Wounds on knees-wound care evaluation tomorrow
Treat with Bactroban ointment and dressing changes
#Type 2 diabetes
On Jardiance, Lantus 30 units at night, NovoLog 4 units before meals, metformin 1000 mg daily as outpatient
Continue NovoLog 2 units before meals and Lantus to be decreased to 20 units today.
Also on Mounjaro
Hemoglobin A1c 6.9
With diet at home may need more insulin at home
# Hyperlipidemia-continue atorvastatin
# Essential hypertension-hold losartan for now
# Mild cognitive impairment
# Obesity per BMI criteria
# Chronic right bundle branch block
# DVT prophylaxis-Lovenox
# CODE STATUS-full code
PT OT
Discussed with nursing
Discharge
D/W Case management
Anticipated Discharge: Today
Subjective/Interval History
-
Date of Service: May 12, 2024
Objective Data
-
Vital Signs:
Vital Signs
Temp Pulse Resp BP Pulse Ox
97.9 F 88 16 138/83 95
05/12/24 06:55 05/12/24 06:55 05/12/24 06:55 05/12/24 06:55 05/12/24 08:00
I&O
05/11/24 05/12/24 05/13/24
06:59 06:59 06:59
Intake Total 3500 / 3500 2860 / 2860
Output Total 3320 / 3320 3110 / 3110
Balance 180 / 180 -250 / -250
[2024-05-12 11:04] VITALS: BP 113/80
--- NOTE | 2024-05-12 11:12 | W.DS.TRANS ---
Addendum entered and electronically signed by Whitney Henry MD 05/12/24 15:23:
Dictation- [id number]
Original Note:
DC Summary - Dormitory Maid
-
Discharge Instructions:
Discharge Diagnosis/Procedures Fall, wounds on the knee, diabetes, high
cholesterol, hypertension
Diet Diabetic, Carb Controlled
Activity As tolerated,With assistance
Driving Restrictions As prior to admission
Other Services VN
Instructions:
Stand-Alone Forms:
Changes to Home Medications: Yes
Discharge Medications:
DC Medications w/original date entered in [facility]
aspirin 325 mg tablet 325 mg PO .3X WEEKLY Blood clot prevention/tx 12/20/22
atorvastatin 10 mg tablet 10 mg PO DAILY@1400 High Cholesterol 05/09/24
empagliflozin 10 mg tablet (Jardiance) 10 mg PO DAILY@1400 Diabetes 05/09/24
insulin aspart U-100 100 unit/mL (3 mL) subcutaneous pen (Novolog FlexPen U-100 Insulin aspart) 4 units SC MEALS Diabetes 05/09/24
metformin 1,000 mg tablet 1,000 mg PO DAILY@1400 Diabetes 05/09/24
tirzepatide 5 mg/0.5 mL subcutaneous pen injector (Mounjaro) 5 mg SC WE Diabetes 05/09/24
cyanocobalamin (vitamin B-12) 1,000 mcg tablet 1,000 mcg PO DAILY Supplement #30 tabs 05/12/24
insulin glargine 100 unit/mL subcutaneous solution (Lantus U-100 Insulin) 20 unit (0.2 mL) SC HS Diabetes #0 mL 05/12/24
losartan 25 mg tablet 12.5 mg (1/2 x 25 mg) PO HS Blood Pressure #0 tabs 05/12/24
mupirocin 2 % topical ointment 1 applic topical BID Skin issues #22 grams 05/12/24
Home Medication Changes
Losartan and Lantus dose decreased
Mupirocin is new
Pending Results: No
[2024-05-12 12:16] LABS: Glucose - Point of Care 107 mg/dl (70-99)
[2024-05-12] MEDS: LIPITOR 10 MG PO (13:37)
[2024-05-12] MEDS: GLUCOPHAGE 1000 MG PO (13:38)
[2024-05-12] MEDS: JARDIANCE 10 MG PO (13:38)
--- NOTE | 2024-05-12 13:46 | CM ---
Patient has been medically cleared for discharge to home with [facility] VN and PT/OT services. Patient's friend will transport home.
[2024-05-12 14:28] VITALS: BP 132/84
== END 2024-05-12 14:44 | disposition home health service (06) | DRG 312 ==
LOC: 2 SOUTH 03:30
PROVIDERS: ADMITTING PHYSICIAN Internal Medicine; ATTENDING PHYSICIAN Hospitalist; EMERGENCY PHYSICIAN Emergency Medicine; FAMILY PHYSICIAN Emergency Medicine
DX: I95.1 Orthostatic hypotension (principal); R29.6 Repeated falls; E78.5 Hyperlipidemia, unspecified; I10 Essential (primary) hypertension; E66.9 Obesity, unspecified; Z68.30 Body mass index [BMI] 30.0-30.9, adult; E11.40 Type 2 diabetes mellitus with diabetic neuropathy, unspecified; E86.0 Dehydration
CPT/HCPCS: 70450; 71046; 80048; 80053; 81003; 82607; 82962; 83036; 84443; 84484; 85025; 85027; 90715; 93005; 97162; 97166; 97535; 99285

== ENCOUNTER 2025-02-05 16:03 | Inpatient (IN) | payer OTHER, SELFPAY ==
[2025-02-03 23:30] VITALS: BP 130/84
--- NOTE | 2025-02-03 23:35 | ED.GENMED ---
History of Present Illness
<Kaylee John PA-C - Last Filed: 02/04/25 23:05>
General
Chief Complaint: Fainting/Passed Out
Source: patient
Exam Limitations: none
Time Seen by Provider: 02/03/25 23:33
Nursing documentation reviewed up to this point in time: agreed with
History of Present Illness
History of Present Illness:
This is a 64-year-old male with past medical history of insulin-dependent diabetes, hyperlipidemia, hypertension who presents emergency department today with concerns of syncope with nausea and diarrhea. Patient states that when he went to bed
tonight, he got up and went to use the bathroom and states that he was running to the bathroom and he fell backwards, onto the toilet. He states that he was consciousness. Patient reports that he woke up sitting on the toilet. He told his
roommate what happened and his remade recommended that he call EMS. Patient states that he has had diarrhea for the past 2 days. Patient does note intermittent left-sided abdominal discomfort as well as dizziness and nausea but denies any chest
pain or shortness of breath. He denies any dark tarry stools, denies any rectal bleeding. He denies any vomiting. This is never happened to him before. Of note, patient states that he just started Mounjaro around 6 days ago. He denies any
history of intra-abdominal surgeries.
Past History
<Kaylee John PA-C - Last Filed: 02/04/25 23:05>
Past History
ED Past Medical History: HTN, Hypercholesterolemia, IDDM and Other (Right bundle branch block, diabetic peripheral neuropathy)
ED Past Surgical History: Tonsilectomy
Patient has exhibited threatening behavior?: No
PSI?: No
Social History
Tobacco: Non-smoker
Alcohol: Occasional
Drug: None
Personal: Single
Living: with roommate
Employment: Retired
Family History
Family History: Other (Noncontributory)
Review of Systems
<Kaylee John PA-C - Last Filed: 02/04/25 23:05>
Review of Systems
All Other Systems: ROS reviewed and negative except as documented in HPI and ROS
Phy Exam
<Kaylee John PA-C - Last Filed: 02/04/25 23:05>
Physical Exam
Physical Exam:
General: Patient is well appearing and in no acute distress; non-toxic
Skin: Warm and dry, no rashes or lesions
Head: Normocephalic, atraumatic
Eyes: Sclera non-icteric. EOMs intact. PERRLA.
Neck: No cervical spinal tenderness to palpation
Cardiac: Regular rate and rhythm, no murmurs
Peripheral Vascular: No lower extremity swelling or edema
Pulm: Normal respiratory effort, no wheezes, rales, or rhonchi
Abdomen: LLQ abdominal tenderness to palpation
Neuro: CN II-XII intact, no focal neurologic deficits. Normal finger-nose, normal [id number].
Psychiatric: Appropriate mood and affect.
Course
<Kaylee John PA-C - Last Filed: 02/04/25 23:05>
Orders/Labs/Results
Orders:
Orders
02/03/25 23:29
EKG [Electrocardiogram (*1)] Urgent
Reason for Study: Syncope
EKG- Treatment ONCE
02/03/25 23:47
Complete Blood Count/With Diff Urgent
Comprehensive Metabolic Panel Urgent
Lipase Urgent
02/03/25 23:51
Ondansetron Injectable [Zofran] 4 mg .ROUTE .STK-MED ONE
02/03/25 23:56
Troponin I Urgent
02/04/25
CT Abd/pelvis W Iv Cont Urgent
Reason For Exam: Left lower quadrant pain
CT Head W/o Iv Contrast Urgent
Reason For Exam: dizziness
02/04/25 00:10
Ondansetron Injectable [Zofran] 4 mg IV NOW STA
02/04/25 00:43
0.9% Sodium Chloride 500 ml [Nss] 500 ml IV BOLUS
02/04/25 03:00
Orthostatic VS- Treatment ONCE
02/04/25 05:02
Case Management Consult ONCE
Case Management Consult: Discharge Planning
Pt Eval And Treat Urgent
Activity Level: As Tolerated
02/04/25 13:52
Orthostatic Vital Signs As Directed
Orthostatic VS Frequency: Now
02/04/25 13:53
Stool Culture Routine
MIKKI Source: Feces/Stool
Specimen Description:
Stool For WBC Routine
MIKKI Source: Feces/Stool
Specimen Description:
02/04/25 14:14
Ova & Parasites Giardia/Crypto AG [Giardia/Cryptosporidium Ag] Routine
MIKKI Source: Feces/Stool
Specimen Description:
02/04/25 14:17
MRI Brain [MR Brain Without Contrast] Routine
Comment:
Reason For Exam: dizzinness
OK for patient to be off Cardiac Monitoring for MRI: Yes
Recent pill cam endoscopy?: No
02/04/25 14:19
Dextrose 50%-Water [Dextrose 50% Syringe] 12.5 grams IV [id number] PRN
Glucagon [GlucaGen] 1 mg IM PRN PRN
Bedside Glucose Monitoring As Directed
Frequency: AC&HS
Additional Instructions:: Change to q6h if pt on TPN, tube feeding or not eating
02/04/25 14:30
0.9% Sodium Chloride 1000 ml [Nss] 1,000 ml IV 125 mls/hr
02/04/25 14:42
NEUROLOGY CONSULT Routine
Consulting Provider: Joslyn Chen
Was physician already notified: Yes
Reason for consult: diziness hc cerebellar cva
02/04/25 14:43
Admit/Transfer Patient As Directed
Co-Sign Provider:
Level of Care: Observation services
Assign to:: Telemetry
Physician / Group: charisse hutton
Diagnosis: acute dizziness, near syncope, diarrheax3 days post ozempic
Reason for Telemetry: CVA/TIA
Date to Stop Telemetry: 02/07/25
Time to Stop Telemetry: 11:00
Reason for Hospitalization: acute dizziness, near syncope, diarrheax3 days post ozempic
Code Status As Directed
Resuscitation Status: Full Code
02/04/25 14:47
PRN Pain Medication Management As Directed
May give lesser potent ordered pain med per pt: Yes
preference::
Protocol:: Medication orders for pain may be administered in a
manner that supports deferring to patient preference
when the pt is:
- Requesting an ordered lesser potent pain medication.
Least to most potent pain medications are defined
as: acetaminophen < NSAID < tramadol < opioids
(morphine, oxycodone, hydromorphone).
- Requesting a lesser dose of the same medication IF
ORDERED.
- Requesting a less intrusive route of administration
if both routes are prescribed by the provider (PO <
IV).
02/04/25 Dinner
1800 calorie (15 carb) Diabetic
At Your Request: Limited, Cargo Worker Required
Diabetic Diet: Cholesterol Lowering
02/04/25 16:00
Meclizine [Antivert] 12.5 mg PO TID
02/04/25 16:30
Insulin Aspart Corrective Low [Novolog Flexpen-Low Resistance] See Protocol SC AC
02/04/25 16:52
Activity As Directed
Activity Level: With Assistance
Intake/ Output As Directed
Frequency: Per unit guidelines
Pneumatic Compression Sleeves As Directed
Type: Knee high
Vital Signs As Directed
Frequency: Per unit guidelines
DX Deep Vein Thrombosis Video Routine
02/04/25 17:30
Insulin Aspart Pen [Novolog Flexpen] 4 units SC MEALS
02/04/25 22:00
Insulin Glargine Lantus [Lantus] 15 units Subcutaneous Insulin Syringe [Syringe-Insulin] 0 unit SC HS
Losartan [Cozaar] 12.5 mg PO HS
02/05/25 06:00
Complete Blood Count/With Diff IN AM
Comprehensive Metabolic Panel IN AM
Glycohemoglobin (HgbA1c) IN AM
02/05/25 08:00
Aspirin 325 mg PO TuTh@0800
Clopidogrel Bisulfate [Plavix] 75 mg PO DAILY
Cyanocobalamin [Vitamin B-12] 3,000 mcg PO DAILY
02/05/25 14:00
Atorvastatin [Lipitor] 10 mg PO DAILY@1400
02/06/25 06:00
Complete Blood Count/With Diff IN AM
Comprehensive Metabolic Panel IN AM
02/07/25 06:00
Complete Blood Count/With Diff IN AM
Comprehensive Metabolic Panel IN AM
02/07/25 11:00
DC Protocol for Telemetry ONCE
02/08/25 06:00
Complete Blood Count/With Diff IN AM
Comprehensive Metabolic Panel IN AM
Abnormal Lab Results
02/03/25
23:47
MPV 11.1 H fL
(7.4-10.4)
Absolute Neuts (auto) 7.7 H 10^3/uL
(1.4-6.5)
Absolute Lymphs (auto) 0.7 L 10^3/uL
(1.2-3.4)
Neutrophils % 87.0 H %
(42.2-75.2)
Lymphocytes % 8.4 L %
(20.5-51.1)
Glucose 245 H mg/dl
(70-99)
02/03/25 23:47
02/03/25 23:47
Vital Signs
Initial and Last Documented VS:
Initial Vital Signs
Pulse Resp BP Pulse Ox
91 20 130/84 98
02/03/25 23:30 02/03/25 23:30 02/03/25 23:30 02/03/25 23:30
Last Documented Vital Signs
Temp Pulse Resp BP Pulse Ox
98.2 F 89 14 137/84 97
02/04/25 19:00 02/04/25 19:00 02/04/25 19:00 02/04/25 19:00 02/04/25 19:00
<Vicente Jennings PA-C - Last Filed: 02/04/25 08:27>
Orders/Labs/Results
Orders:
Orders
02/03/25 23:29
EKG [Electrocardiogram (*1)] Urgent
Reason for Study: Syncope
EKG- Treatment ONCE
02/03/25 23:47
Complete Blood Count/With Diff Urgent
Comprehensive Metabolic Panel Urgent
Lipase Urgent
02/03/25 23:51
Ondansetron Injectable [Zofran] 4 mg .ROUTE .STK-MED ONE
02/03/25 23:56
Troponin I Urgent
02/04/25
CT Abd/pelvis W Iv Cont Urgent
Reason For Exam: Left lower quadrant pain
CT Head W/o Iv Contrast Urgent
Reason For Exam: dizziness
02/04/25 00:10
Ondansetron Injectable [Zofran] 4 mg IV NOW STA
02/04/25 00:43
0.9% Sodium Chloride 500 ml [Nss] 500 ml IV BOLUS
02/04/25 03:00
Orthostatic VS- Treatment ONCE
02/04/25 05:02
Case Management Consult ONCE
Case Management Consult: Discharge Planning
Pt Eval And Treat Urgent
Activity Level: As Tolerated
02/04/25 13:52
Orthostatic Vital Signs As Directed
Orthostatic VS Frequency: Now
02/04/25 13:53
Stool Culture Routine
MIKKI Source: Feces/Stool
Specimen Description:
Stool For WBC Routine
MIKKI Source: Feces/Stool
Specimen Description:
02/04/25 14:14
Ova & Parasites Giardia/Crypto AG [Giardia/Cryptosporidium Ag] Routine
MIKKI Source: Feces/Stool
Specimen Description:
02/04/25 14:17
MRI Brain [MR Brain Without Contrast] Routine
Comment:
Reason For Exam: dizzinness
OK for patient to be off Cardiac Monitoring for MRI: Yes
Recent pill cam endoscopy?: No
02/04/25 14:19
Dextrose 50%-Water [Dextrose 50% Syringe] 12.5 grams IV [id number] PRN
Glucagon [GlucaGen] 1 mg IM PRN PRN
Bedside Glucose Monitoring As Directed
Frequency: AC&HS
Additional Instructions:: Change to q6h if pt on TPN, tube feeding or not eating
02/04/25 14:30
0.9% Sodium Chloride 1000 ml [Nss] 1,000 ml IV 125 mls/hr
02/04/25 14:42
NEUROLOGY CONSULT Routine
Consulting Provider: Joslyn Chen
Was physician already notified: Yes
Reason for consult: diziness hc cerebellar cva
02/04/25 14:43
Admit/Transfer Patient As Directed
Co-Sign Provider:
Level of Care: Observation services
Assign to:: Telemetry
Physician / Group: charisse hutton
Diagnosis: acute dizziness, near syncope, diarrheax3 days post ozempic
Reason for Telemetry: CVA/TIA
Date to Stop Telemetry: 02/07/25
Time to Stop Telemetry: 11:00
Reason for Hospitalization: acute dizziness, near syncope, diarrheax3 days post ozempic
Code Status As Directed
Resuscitation Status: Full Code
02/04/25 14:47
PRN Pain Medication Management As Directed
May give lesser potent ordered pain med per pt: Yes
preference::
Protocol:: Medication orders for pain may be administered in a
manner that supports deferring to patient preference
when the pt is:
- Requesting an ordered lesser potent pain medication.
Least to most potent pain medications are defined
as: acetaminophen < NSAID < tramadol < opioids
(morphine, oxycodone, hydromorphone).
- Requesting a lesser dose of the same medication IF
ORDERED.
- Requesting a less intrusive route of administration
if both routes are prescribed by the provider (PO <
IV).
02/04/25 Dinner
1800 calorie (15 carb) Diabetic
At Your Request: Limited, Cargo Worker Required
Diabetic Diet: Cholesterol Lowering
02/04/25 16:00
Meclizine [Antivert] 12.5 mg PO TID
02/04/25 16:30
Insulin Aspart Corrective Low [Novolog Flexpen-Low Resistance] See Protocol SC AC
02/04/25 16:52
Activity As Directed
Activity Level: With Assistance
Intake/ Output As Directed
Frequency: Per unit guidelines
Pneumatic Compression Sleeves As Directed
Type: Knee high
Vital Signs As Directed
Frequency: Per unit guidelines
DX Deep Vein Thrombosis Video Routine
02/04/25 17:30
Insulin Aspart Pen [Novolog Flexpen] 4 units SC MEALS
02/04/25 22:00
Insulin Glargine Lantus [Lantus] 15 units Subcutaneous Insulin Syringe [Syringe-Insulin] 0 unit SC HS
Losartan [Cozaar] 12.5 mg PO HS
02/05/25 06:00
Complete Blood Count/With Diff IN AM
Comprehensive Metabolic Panel IN AM
Glycohemoglobin (HgbA1c) IN AM
02/05/25 08:00
Aspirin 325 mg PO TuTh@0800
Clopidogrel Bisulfate [Plavix] 75 mg PO DAILY
Cyanocobalamin [Vitamin B-12] 3,000 mcg PO DAILY
02/05/25 14:00
Atorvastatin [Lipitor] 10 mg PO DAILY@1400
02/06/25 06:00
Complete Blood Count/With Diff IN AM
Comprehensive Metabolic Panel IN AM
02/07/25 06:00
Complete Blood Count/With Diff IN AM
Comprehensive Metabolic Panel IN AM
02/07/25 11:00
DC Protocol for Telemetry ONCE
02/08/25 06:00
Complete Blood Count/With Diff IN AM
Comprehensive Metabolic Panel IN AM
Abnormal Lab Results
02/03/25
23:47
MPV 11.1 H fL
(7.4-10.4)
Absolute Neuts (auto) 7.7 H 10^3/uL
(1.4-6.5)
Absolute Lymphs (auto) 0.7 L 10^3/uL
(1.2-3.4)
Neutrophils % 87.0 H %
(42.2-75.2)
Lymphocytes % 8.4 L %
(20.5-51.1)
Glucose 245 H mg/dl
(70-99)
02/03/25 23:47
02/03/25 23:47
Vital Signs
Initial and Last Documented VS:
Initial Vital Signs
Pulse Resp BP Pulse Ox
91 20 130/84 98
02/03/25 23:30 02/03/25 23:30 02/03/25 23:30 02/03/25 23:30
Last Documented Vital Signs
Temp Pulse Resp BP Pulse Ox
98.2 F 89 14 137/84 97
02/04/25 19:00 02/04/25 19:00 02/04/25 19:00 02/04/25 19:00 02/04/25 19:00
<Kaylee John PA-C - Last Filed: 02/04/25 23:05>
MDM/Problems Addressed
Differential Diagnosis Includes:
ddx include viral syndrome, vasovagal syncope, diabetic ketoacidosis, orthostatic hypotension, diverticulitis
MDM/Problems Addressed:
This is a 64-year-old male with past medical history of insulin-dependent diabetes, hyperlipidemia, hypertension who presents emergency department today with concerns of syncope with nausea and diarrhea. He also notes dizziness before and after the
episode. He denies any fevers or chills. Will check EKG
CT of the head shows no acute intracranial abnormalities. CT of the abdomen shows no acute intra-abdominal abnormalities. CBC and CMP unremarkable. Troponin not ACS range, EKG shows left axis deviation and right bundle branch block unchanged from
prior. Suspect patient's syncopal episode was vasovagal from abdominal pain/diarrhea. However, patient did have positive orthostatic vital signs and he has had this in the past. After continued IV fluids, patient states he still feels dizzy and
like he is going to pass out or fall with standing. On review of records, patient has been seen twice in the past for similar symptoms. When he was admitted May 2024, he had similar symptoms and was admitted for orthostasis and significant fall
risk. His weakness was attributed to dehydration and had arrangement to have home PT done. Considering patient still has symptoms but unremarkable workup, will place PT and OT eval for the morning as well as case management. If he is able to
ambulate with PT if home PT is able to be arranged, I think outpatient follow-up with neurologist is reasonable.
7 AM, case signed out to Juan HUITRON, case reviewed with attending
Chronic conditions affecting care:
Prior CVA, insulin-dependent diabetes,
<Vicente Jennings PA-C - Last Filed: 02/04/25 08:27>
*Critical Care Note
Total Time (30-74mins, 75-104mins- exclusive of procedures): Not Applicable
<Kaylee John PA-C - Last Filed: 02/04/25 23:05>
Update Note
Update Note:
When performing orthostatic vitals, patient's systolic blood pressure drops 20 mmHg and he becomes tachycardic as well as symptomatic---will give another liter of IV fluids

Update, after IV fluids, patient does note improvement as his dizziness and lightheadedness with sitting up however when he stands, he tells nursing staff that the room is spinning and that he is going to syncopized.
<Vicente Jennings PA-C - Last Filed: 02/04/25 08:27>
Update Note
Update Note:
When performing orthostatic vitals, patient's systolic blood pressure drops 20 mmHg and he becomes tachycardic as well as symptomatic---will give another liter of IV fluids

Update, after IV fluids, patient does note improvement as his dizziness and lightheadedness with sitting up however when he stands, he tells nursing staff that the room is spinning and that he is going to syncopize.
8:25 AM: Received signout from overnight staff pending physical therapy evaluation. Spoke with physical therapy. Physical therapy attempted to stand him up however the patient is too symptomatic and dizzy to even sit up and he falls back into bed.
Patient unable to ambulate safely. Will admit to hospital for intractable dizziness
ED Attending Note
<Kaylee John PA-C - Last Filed: 02/04/25 23:05>
-
Portions of this chart may have been created with voice recognition software.� Occasional wrong word or��sound alike� substitutions may have occurred due to the inherent limitations of voice recognition software.
Discharge Plan
Departure
Patient Disposition: Admit
Date of Disposition: 02/04/25
Time of Disposition: 08:27
Presentation/result/management discussed w/ accepting MD/DO: Hospitalist
Discharge Problem:
Dizziness
Interventions
Interventions:
*Risk Screen - Suicide Last Done: 02/03/25 23:30
*General Assessment Last Done: 02/03/25 23:30
*Neglect/Abuse Screening Last Done: 02/03/25 23:30
*ED- Fall Risk Assessment Last Done: 02/03/25 23:30
*ED COVID-19 Vaccine History Last Done: 02/04/25 17:16
*Nursing Disposition Last Done: 02/04/25 16:39
[facility]-Ebspubwv[facility] Assessment Last Done: 02/04/25 00:00
ED- Cardiac Assessment Last Done: 02/04/25 00:00
ED- Neurological Assessment Last Done: 02/04/25 00:00
Discharge Date and Time
Discharge Date/Time: 02/04/25 16:39
[2025-02-04] VITALS (28 sets, daily range): BP systolic 113–156; BP diastolic 76–124; PULSE 86–114; O2SAT 96
[2025-02-04 00:10] LABS: % Basophils 0.1 % (0-2); % Eosinophils 0.8 % (0-6); % Immature Granulocytes 0.5 % (0-0.5); % Lymphocytes 8.4 % (20.5-51.1); % Monocytes 3.2 % (1.7-9.3); Absolute Eosinophils 0.1 10^3/uL (0-0.7); Absolute Lymphocytes 0.7 10^3/uL (1.2-3.4); Absolute Monocytes 0.3 10^3/uL (0.1-0.6); Absolute Neutrophils 7.7 10^3/uL (1.4-6.5); Hematocrit 43.6 % (39.0-52.0); Hemoglobin 14.7 g/dL (13.0-18.0); Mean Corp Hgb Conc. 33.7 g/dL (33.0-37.0); Mean Corpuscular Hgb 30.7 pg (27.0-31.0); Mean Platelet Volume 11.1 fL (7.4-10.4); Nucleated Red Blood Cells % 0 % (-); Platelet Count 130 10^3/uL (130-400); Red Blood Cell Count 4.79 10^6/uL (4.70-6.10); Red Cell Dist. Width 12.6 % (11.5-14.5); White Blood Cell Count 8.8 10^3/uL (4.8-10.8)
[2025-02-04] MEDS: ZOFRAN 4 MG IV (00:16)
[2025-02-04 00:18] LABS: ALT (SGPT) 31 U/L (0-50); AST (SGOT) 26 U/L (17-59); Alkaline Phosphatase 73 U/L (38-126); Blood Urea Nitrogen 17 mg/dl (9-20); Calcium 9.7 mg/dl (8.4-10.2); Carbon Dioxide 23 mmol/L (22-30); Chloride 102 mmol/L (98-107); Estimated Creatinine Clearance 118 ml/min; Glucose 245 mg/dl (70-99); Lipase 62 U/L (23-300); Potassium 4.1 mmol/L (3.5-5.1); Sodium 136 mmol/L (135-145); Total Bilirubin 0.8 mg/dl (0.2-1.3); Total Protein 6.6 g/dl (6.3-8.2); eGFR > 60.00
[2025-02-04 00:27] LABS: Troponin I 0.013 ng/ml
[2025-02-04] MEDS: NSS 500 IV (01:00)
--- NOTE | 2025-02-04 09:25 | CM ---
design manager reviewed patient's chart and met with patient and patient reports that he lives with a friend at [facility], on [address]. Patient is independent with adl's and ambulation, has a cane and walker. Physical therapy
evaluated chris and recommendation is for skilled placement, skilled options reviewed with patient and he has selected [facility], [facility] and [facility], referrals sent through [facility].
PCP: Bria Williamson
Pharmacy: [facility]
Plan; Skilled placement [facility], [facility], and [facility], referrals sent.
--- NOTE | 2025-02-04 13:54 | HPS.HSE ---
Addendum entered and electronically signed by Blair Irvin MD 02/04/25 17:45:
Dizziness and weakness onset last evening. Dizziness gets worse both with sitting up and with turning head
Pt seen independently and agree with FINANCIAL REPORTING ADVISOR note
E no nystagmus
Neck supple
Lungs clear
CV reg
Ext no edema
Imp: profound incapacitating dizziness mad worse both by turning head and sitting up
P: MRI
check UA
Original Note:
Family Physician
-
Family Physician: Bria Williamson MD
Chief Complaint
-
Nausea x 2 weeks, diarrhea x 3 days post Ozempic
History of Present Illness
64-year-old male who came to the ER last evening at 2333 complaining of dizziness with nausea and diarrhea. He states he went to bed he then got up to use the bathroom. He was running to the bathroom then fell backwards onto the toilet where he he
had explosive diarrhea. He reports he woke up sitting on the toilet and told his roommate what happened and he made him call EMS. He states he was on Mounjaro for the past year but was having issues with constipation so changed to Ozempic 2 weeks
ago 2.5 mg the first injection he has had persistent nausea he then did his second injection on Sunday had increased nausea with watery diarrhea multiple episodes on Sunday and Sunday. He also reports eating lots of sushi since it was on
sale consuming his last raw food about a week ago he did have on Sunday 2 cheeseburgers with 2 fried fish sandwiches and a [place] shake from [employer]. He then became sick the next day on Sunday with diarrhea and generalized abdominal
discomfort as well as dizziness with standing and somewhat with lying and turning his head. He reports he has never had dizziness or vertigo before. He does report history of a stroke with visual symptoms and follows with Dr. Sonia medrano in [place]
He denies fever, chills, bloody or black stools, mucus in stool, headache, chest pain, palpitations, cough, shortness of breath, urinary symptoms. Other past medical history includes hypertension, HLD, RBBB, DM2, diabetic neuropathy, class I
obesity�BMI 32.9, snoring never had sleep study eval, CVA prodrome of blurred vision, chronic ambulatory dysfunction uses walker
Medical History
Past Medical History
Past Medical History: Reports Other
Additional Past Medical History:
hypertension
HLD
RBBB
DM2
diabetic neuropathy
class I obesity�BMI 32.9
snoring never had sleep study eval
CVA prodrome of blurred vision-Chronic lacunar infarcts of the right cerebellum and right basal ganglia
chronic ambulatory dysfunction uses walker
Past Surgical History: Reports Tonsilectomy
Social History
Tobacco: Non-smoker
Alcohol: None
Drug: None
Personal: Single
Living: With [facility] ([place])
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
Family History
Family History: Early CAD (father MIage 58 ) and Other (Brother age 80 unsure)
Allergies / Home Medications
Allergies reflects when Allergies were last updated in [email or web address].
Home Medications with original date entered in [email or web address]
Allergy/Medication List:
Allergies
Allergy/AdvReac Type Severity Reaction Status Date / Time
No Known Allergies Allergy Unverified 12/30/21 03:11
Home Medications
insulin aspart U-100 100 unit/mL (3 mL) subcutaneous pen (Novolog FlexPen U-100 Insulin aspart) 20 units (0.2 mL) SC AC 01/05/22
metoprolol tartrate 25 mg tablet 25 mg PO BID 01/05/22
insulin glargine 100 unit/mL subcutaneous solution (Lantus U-100 Insulin) 35 units (0.35 mL) SC DAILY@2200 01/07/22
Pregaven 1 cap PO DAILY 12/20/22
aspirin 325 mg tablet 325 mg PO DAILY 12/20/22
Review of Systems
-
History Source: Patient
A 12 point ROS was completed and negative except as noted: Yes
Constitutional: Denies Fever, Fatigue or Chills
EENT: Denies Sore Throat or Runny Nose
Respiratory: Denies Cough or Trouble Breathing
Cardiac: Denies Chest Pain, Diaphoresis, Palpitations or Syncope
Abdomen/GI: Reports Abdominal Pain (Generalized), Nausea (2 weeks) and Diarrhea (Watery multiple episodes a day x 3 days after Ozempic); Denies Vomiting, Constipated, Bloody Stools or Black Stools
: Denies Dysuria, Frequency, Flank Pain, Incontinence, Difficulty Voiding, Urgency or Bleeding
Musculoskeletal: Denies Joint Pain or Edema
Skin: Denies Itching or Rash
Neurological: Reports Dizzy (Spinning sensation when standing up but also lately when moving head left and right in bed but not with EOMs); Denies Headache or Weakness
Endocrine: Reports No Symptoms
Hematologic/Lymphatic: Reports No Symptoms
Psych: Reports Calm
Physical Exam
Vital Signs
Vital Signs
Temp Pulse Resp BP Pulse Ox
98.0 F 95 15 136/88 94
02/04/25 01:57 02/04/25 09:30 02/04/25 09:15 02/04/25 10:00 02/04/25 10:30
Physical Exam
General: Comfortable and Conversant; No Pain, Fever or Chills
HEENT: NormoCephalic, Anicteric, PERRLA (EOMs intact no nystagmus), [place] Conjunctivae and No Ptosis
Respiratory: Clear; No Wheezes, Rales or Rhonchi
Cardiac: S1/S2 and Regular Rhythm; No Murmur, Rub, Gallop or Peripheral Edema
Breast: Deferred by me
GI: Soft, Non Distended, Normal Bowel Sounds, Tender (Generalized) and No Hepatosplenomegaly
Rectal: Deferred by Provider
Genito-urinary: Deferred by me
Musculoskeletal: No Clubbing, No Cyanosis and No Edema
Skin: Warm and Dry; No Rash or Jaundice
Neuro: AO x 3, No Motor Deficits, Cranial Nerves Intact, No Sensory Deficits and Other (Spinning sensation when standing up but also lately when moving head left and right in bed but not with EOMs, negative nystagmus); No Slurred Speech, Facial
Droop, Tremors or Sedated
Psych: Calm
Laboratory Results
-
02/03/25 23:47
02/03/25 23:47
Laboratory Results
Total Bilirubin 0.8 mg/dl (0.2-1.3) 02/03/25 23:47
AST 26 U/L (17-59) 02/03/25 23:47
ALT 31 U/L (0-50) 02/03/25 23:47
Alkaline Phosphatase 73 U/L (38-126) 02/03/25 23:47
Troponin I 0.013 ng/ml 02/03/25 23:56
Lipase 62 U/L (23-300) 02/03/25 23:47
Impression/Plan
-
Impression/plan:
Observation telemetry
#Acute dizziness concern for BPPV versus CVA
#History of CVA with prior visual prodrome( Chronic lacunar infarcts of the right cerebellum and right basal ganglia.) follows with Dr. Sonia medrano neurology in [place]
-Check orthostatic vitals
-Consult neurology
-MRI brain
-Meclizine 12.5 mg 3 times daily scheduled
-IV NSS 125 cc an hour
-Check lipid profile, HgbA1c
-Continue aspirin 325 mg 2 times a week, atorvastatin 10 mg daily, Plavix 75 mg daily
#Syncope likely vasovagal due to diarrheal losses
#History of diarrhea x 3 days post Ozempic 2.5 mg use for the first time on Sunday
BP 122/80
-Check orthostatic vitals
-Patient given 500 cc NSS in ER, will continue IV NSS 125 cc an hour
CT head: No acute intracranial abnormality
Moderate age-related parenchymal atrophy.
Chronic lacunar infarcts of the right cerebellum and right basal ganglia.
No intra- or extra-axial mass, hemorrhage, or fluid collection.
Mild subcortical, deep, and periventricular white matter low-attenuation, compatible with changes of chronic small vessel ischemic disease.
Mucus retention cysts in the bilateral maxillary sinuses and right sphenoid sinus. The mastoid air cells are clear.
#Abdominal pain with acute diarrhea likely secondary to starting Ozempic
Was on prior Mounjaro for 1 year but was having difficulty with constipation
-Started Ozempic 2 weeks ago first injection persistent nausea second injection nausea and watery diarrhea x 3 days
-Will check stool WBC, stool C. difficile, ova parasites due to large consumption of raw sushi on sale and fried fish sandwiches on Sunday from [employer]
-IV NSS
-IV Zofran as needed
-Patient has never had colonoscopy he does send out Cologuard to GI every few years
CT abdomen pelvis with IV contrast: No evidence of acute inflammatory process in the abdomen or pelvis
chronic shotty retroperitoneal lymph nodes
chronic single tiny calcified gallstone in the gallbladder lumen
HTN�benign
Current concern for orthostatic hypotension
Will check orthostatic vitals
Continue losartan 12.5 mg at bedtime with hold parameters
#DM 2
#Diabetic neuropathy
Accu-Cheks with SSI, check HgbA1c
Continue Lantus at 15 units SQ at bedtime instead of 30 units SQ at bedtime while inpatient
Advised patient to stop Ozempic 2 mg subcu and go back to prior Mounjaro but add bowel regimen due to constipation
-Continue NovoLog 4 units with meals
#B12 deficiency
Continue B12 supplement
#Chronic ambulatory dysfunction
#Diabetic neuropathy
Uses walker at baseline
#Class I obesity�BMI 32.9
Patient is currently on Ozempic but with recommendations to switch back to Mounjaro due to side effects however is not making any diet changes
#Chronic snoring
Recommended outpatient sleep study for possible sleep apnea
DVT prophylaxis
SCDs
Full code
--- NOTE | 2025-02-04 15:31 | CON.NEURO ---
Consultation
Order
Date of Consultation: 02/04/25
Requesting Provider: Aide Howe CRNP
Reason for Consult: Dizziness history of cerebellar CVA
Neurology Consultation Note.
HPI: This is a 64-year-old man who presented to [facility] on 02/03/2025 with dizziness and change in balance.
Mr. De La O endorses ongoing imbalance and transient vertigo as well as diarrhea that started approximately 2 weeks ago when he switched to Ozempic. He reports difficulty walking, often using arauz for support in his apartment. The patient had a
near-syncope on Sunday as well as dysarthria on Sunday night, which has since resolved.
Mr. De La O denies having falls, headaches but mentions numbness in his right forehead. He has been experiencing hiccups for the past 2 days as well. No reports of dysphagia, change in hearing, dysphonia.
ER VS: 130/84, 91, 36.0C
EKG: NSR, QTc Int : 536 ms
PDMP:none
Labs: Glucose�245, normal WBCs, sodium, creatinine, platelets�130.
CT head wo contrast�chronic right cerebellar, basal ganglia infarcts, moderate atrophy. Mucus retention cysts in the bilateral maxillary sinuses and right sphenoid sinus. The mastoid air cells are clear.
PMH: amnestic MCI, R pontine stroke(05/2024), autonomic dysfunction, HTN, DLP, DM, polyneuropathy, ambulatory dysfunction, Apolipoprotein E deficiency, BMI 32 BMI 32
PSH: tonsillectomy
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
FH: mother-SERVICE SPECIALIST [place]; father-CAD
All:NKDA
ROS: Constitutional: Negative. Negative for chills, fever and unexpected weight change.
HENT: Negative for ear pain, hearing loss, tinnitus and trouble swallowing.
Eyes: Negative. Negative for photophobia, pain and visual disturbance.
Respiratory: positive for shortness of breath.
Cardiovascular: Negative for chest pain, palpitations and leg swelling.
Gastrointestinal: positive for diarrhea
Endocrine: Negative. Negative for cold intolerance.
Genitourinary: Negative for dysuria, flank pain and urgency.
Musculoskeletal: Negative for back pain, gait problem, neck pain and neck stiffness.
Skin: Negative for rash.
Allergic/Immunologic: Negative. Negative for immunocompromised state.
Neurological: positive for distal paresthesias, ataxia, dysarthria, right forehead numbness
General: Well developed. In no acute distress.
Cardio: Regular rate and rhythm without murmur. Extremities are without cyanosis or edema.
Neuro:
Mental Status: Alert, oriented to person, place, and date. Normal attention and recall. Good fund of knowledge. Follows complex requests across the midline. Comprehension, naming, and repetition intact.
Cranial Nerves: Pupils are equally round and reactive to light. EOMs full. Visual messina full to confrontation. No ptosis. No nystagmus. V1-V3 intact to light touch and pinprick bilaterally, symmetric. Face symmetric. Poor hearing AU. The
palate elevated well. SCMs and traps 5/5. Tongue midline. No dysarthria.
Motor: Normal bulk and tone. No pronator or arm drift. Strength 5/5 throughout. No clonus.
Reflexes: 0+ throughout the upper extremities and knees. 0/2 in AJs. Plantar responses flexor bilaterally.
Sensory: absent vibration at the toes, ankles
Coordination: R dysmetria
Gait: deferred
Assessment and Plan:
I. R PICA syndrome
II. Chronic R pontine infarct.
III. Amnestic MCI
IV. Distal symmetric large fiber polyneuropathy.
-Continue Telemetry monitoring
-Fall/aspiration precautions
-ASA 81 mg QD
-Brain MRI wo clemente
-CTA head/neck
-Lipitor 40 mg QHS.
-PT.
-DVT prophylaxis.
I personally reviewed all radiology and labs along with past medical records pertinent to current medical problems. Total time spent in patient care is 60 minutes.
Thank you for allowing us to participate in the care of this patient. We will continue to follow. Please do not hesitate to contact us with any questions or concerns.
Subjective/Objective
Subjective Data
Date of Service: February 04, 2025
Objective Data
Vital Signs
Temp Pulse Resp BP Pulse Ox
36.7 C 89 17 143/83 93
02/04/25 01:57 02/04/25 14:00 02/04/25 11:30 02/04/25 15:00 02/04/25 15:00
Lab Results
02/03/25 23:47
02/03/25 23:47
Sodium 136 mmol/L (135-145) 02/03/25 23:47
Potassium 4.1 mmol/L (3.5-5.1) 02/03/25 23:47
BUN 17 mg/dl (9-20) 02/03/25 23:47
Glucose 245 mg/dl (70-99) H 02/03/25 23:47
Calcium 9.7 mg/dl (8.4-10.2) 02/03/25 23:47
Patient Allergies
No Known Allergies Allergy (Verified 02/03/25 23:59)
Medications
-
Active Medications
Generic Name Dose Route Start Last Admin
Trade Name Freq PRN Reason Stop Dose Admin
Dextrose 12.5 grams 02/04/25 14:19
Dextrose 50% (0.5 Grams/Ml) 50 Ml Syringe IV 03/04/25 14:18
[id number] PRN
hypoglycemia
Protocol
Glucagon 1 mg 02/04/25 14:19
Glucagon 1 Mg Vial IM 03/04/25 14:18
PRN PRN
hypoglycemia
Protocol
Sodium Chloride 1,000 mls @ 125 mls/hr 02/04/25 14:30
Nss IV 02/04/25 22:29
.Q8H CARLINE
Insulin Aspart 0 units 02/04/25 16:30
Insulin Aspart Low Resistance 300 Units/3 Ml Pen.Injctr SC 03/04/25 16:29
AC CARLINE
Protocol
Meclizine HCl 12.5 mg 02/04/25 16:00
Meclizine 12.5 Mg Tablet PO 03/04/25 15:59
TID CARLINE
Sodium Chloride 0 flush 02/04/25 16:00
Sodium Chloride 0.9% (Flush) Syringe IV 03/04/25 15:59
PER PROTOCOL CARLINE
Home Medications
�Medication �Instructions �Recorded
aspirin 325 mg tablet 325 mg PO .2X WEEKLY Blood clot 12/20/22
prevention/tx
atorvastatin 10 mg tablet 10 mg PO DAILY@1400 High 05/09/24
Cholesterol
insulin aspart U-100 100 unit/mL 4 units SC MEALS Diabetes 05/09/24
(3 mL) subcutaneous pen (Novolog
FlexPen U-100 Insulin aspart)
losartan 25 mg tablet 12.5 mg (1/2 x 25 mg) PO HS Blood 05/12/24
Pressure #0 tabs
clopidogrel 75 mg tablet 75 mg PO DAILY 02/04/25
cyanocobalamin (vitamin B-12) 3,000 mcg PO DAILY 02/04/25
3,000 mcg capsule
insulin glargine 100 unit/mL 30 unit SC HS Diabetes 02/04/25
subcutaneous solution (Lantus
U-100 Insulin)
metformin 500 mg tablet,extended 500 mg PO BID 02/04/25
release 24 hr
semaglutide 0.25 mg or 0.5 mg (2 2 mg SC WE 02/04/25
mg/3 mL) subcutaneous pen injector
(Ozempic)
Vital Signs and Labs
-
Vital Signs and Labs:
Vital Signs
Temp Pulse Resp BP Pulse Ox
36.7 C 89 17 143/83 93
02/04/25 01:57 02/04/25 14:00 02/04/25 11:30 02/04/25 15:00 02/04/25 15:00
Lab Results
02/03/25 23:47
02/03/25 23:47
Sodium 136 mmol/L (135-145) 02/03/25 23:47
Potassium 4.1 mmol/L (3.5-5.1) 02/03/25 23:47
BUN 17 mg/dl (9-20) 02/03/25 23:47
Glucose 245 mg/dl (70-99) H 02/03/25 23:47
Calcium 9.7 mg/dl (8.4-10.2) 02/03/25 23:47
Medications
-
Medications:
Generic Name Dose Route Start Last Admin
Trade Name Freq PRN Reason Stop Dose Admin
Dextrose 12.5 grams 02/04/25 14:19
Dextrose 50% (0.5 Grams/Ml) 50 Ml Syringe IV 03/04/25 14:18
[id number] PRN
hypoglycemia
Protocol
Glucagon 1 mg 02/04/25 14:19
Glucagon 1 Mg Vial IM 03/04/25 14:18
PRN PRN
hypoglycemia
Protocol
Sodium Chloride 1,000 mls @ 125 mls/hr 02/04/25 14:30
Nss IV 02/04/25 22:29
.Q8H CARLINE
Insulin Aspart 0 units 02/04/25 16:30
Insulin Aspart Low Resistance 300 Units/3 Ml Pen.Injctr SC 03/04/25 16:29
AC CARLINE
Protocol
Meclizine HCl 12.5 mg 02/04/25 16:00
Meclizine 12.5 Mg Tablet PO 03/04/25 15:59
TID CARLINE
Sodium Chloride 0 flush 02/04/25 16:00
Sodium Chloride 0.9% (Flush) Syringe IV 03/04/25 15:59
PER PROTOCOL CARLINE
Home Medications
-
Home Medications
aspirin 325 mg tablet 325 mg PO .2X WEEKLY Blood clot prevention/tx 12/20/22
atorvastatin 10 mg tablet 10 mg PO DAILY@1400 High Cholesterol 05/09/24
insulin aspart U-100 100 unit/mL (3 mL) subcutaneous pen (Novolog FlexPen U-100 Insulin aspart) 4 units SC MEALS Diabetes 05/09/24
losartan 25 mg tablet 12.5 mg (1/2 x 25 mg) PO HS Blood Pressure #0 tabs 05/12/24
clopidogrel 75 mg tablet 75 mg PO DAILY 02/04/25
cyanocobalamin (vitamin B-12) 3,000 mcg capsule 3,000 mcg PO DAILY 02/04/25
insulin glargine 100 unit/mL subcutaneous solution (Lantus U-100 Insulin) 30 unit SC HS Diabetes 02/04/25
metformin 500 mg tablet,extended release 24 hr 500 mg PO BID 02/04/25
semaglutide 0.25 mg or 0.5 mg (2 mg/3 mL) subcutaneous pen injector (Ozempic) 2 mg SC WE 02/04/25
[2025-02-04 17:16] LABS: Glucose - Point of Care 129 mg/dl (70-99)
[2025-02-04] MEDS: ANTIVERT 12.5 MG PO (17:31)
[2025-02-04] MEDS: NSS 1000 IV (17:31)
[2025-02-04] MEDS: NOVOLOG FLEXPEN-LOW RESISTANCE SC (17:31)
[2025-02-04] MEDS: NOVOLOG FLEXPEN SC (19:03)
[2025-02-04 21:31] LABS: HDL Cholesterol 30 mg/dl; LDL Cholesterol, Calculated 80 mg/dl; Total Cholesterol 147 mg/dl (50-199); Triglyceride 188 mg/dl (10-149); Very Low Density Lipoprotein 37 mg/dl (0-30)
[2025-02-04 21:32] LABS: Glucose - Point of Care 133 mg/dl (70-99)
[2025-02-04 23:57] LABS: Vitamin B12 > 1000 pg/ml (239-931)
[2025-02-05] MEDS: COZAAR 12.5 MG PO ×2 (00:10→22:14)
[2025-02-05] MEDS: ANTIVERT 12.5 MG PO ×4 (00:12→22:15)
[2025-02-05] MEDS: LANTUS 0.15 UNITS SC ×2 (00:12→22:16)
[2025-02-05 03:00] VITALS: BP 143/82
[2025-02-05 06:00] VITALS: BMI 31.9
[2025-02-05 06:27] LABS: % Basophils 0.4 % (0-2); % Immature Granulocytes 0.4 % (0-0.5); % Monocytes 6.2 % (1.7-9.3); Absolute Eosinophils 0.2 10^3/uL (0-0.7); Absolute Lymphocytes 1.3 10^3/uL (1.2-3.4); Absolute Monocytes 0.3 10^3/uL (0.1-0.6); Absolute Neutrophils 3.3 10^3/uL (1.4-6.5); Hemoglobin 14.2 g/dL (13.0-18.0); Mean Corp Hgb Conc. 34.6 g/dL (33.0-37.0); Mean Corpuscular Hgb 30.6 pg (27.0-31.0); Mean Corpuscular Volume 88.4 fL (80.0-94.0); Mean Platelet Volume 10.6 fL (7.4-10.4); Nucleated Red Blood Cells % 0 % (-); Platelet Count 129 10^3/uL (130-400); Red Blood Cell Count 4.64 10^6/uL (4.70-6.10); Red Cell Dist. Width 12.4 % (11.5-14.5)
[2025-02-05 06:49] LABS: ALT (SGPT) 34 U/L (0-50); AST (SGOT) 28 U/L (17-59); Alkaline Phosphatase 68 U/L (38-126); Blood Urea Nitrogen 13 mg/dl (9-20); Calcium 9.3 mg/dl (8.4-10.2); Carbon Dioxide 26 mmol/L (22-30); Chloride 106 mmol/L (98-107); Estimated Creatinine Clearance 102 ml/min; Glucose 113 mg/dl (70-99); Sodium 141 mmol/L (135-145); Total Bilirubin 0.7 mg/dl (0.2-1.3); Total Protein 6.5 g/dl (6.3-8.2); eGFR > 60.00
[2025-02-05 07:27] VITALS: BP 117/51
[2025-02-05 07:47] LABS: Glucose - Point of Care 113 mg/dl (70-99)
[2025-02-05] MEDS: NOVOLOG FLEXPEN-LOW RESISTANCE SC ×2 (08:59→16:57)
[2025-02-05 09:03] LABS: Glycohemoglobin (HgbA1c) 7.4 % (4.0-5.6)
[2025-02-05] MEDS: VITAMIN B-12 3000 MCG PO (09:12)
[2025-02-05] MEDS: PLAVIX 75 MG PO (09:12)
[2025-02-05] MEDS: ASPIRIN 325 MG PO (09:14)
--- NOTE | 2025-02-05 09:32 | W.PN.NEURO.1 ---
Today's Communication / Plan
-
.
Subjective/Objective
Subjective Data
Date of Service: February 05, 2025
Neurology Consultation Note.
Mr. De La O endorses ongoing imbalance and intermittent nonpositional vertigo. No reports of headache, change in vision.
Brain MRI showed an acute right PICA/SCA infarcts.
CTA/TTE are pending.
LDL-80, hemoglobin A1c�7.4
PMH: amnestic MCI, R pontine stroke(05/2024), autonomic dysfunction, HTN, DLP, DM, polyneuropathy, ambulatory dysfunction, Apolipoprotein E deficiency, BMI 32 BMI 32
PSH: tonsillectomy
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
FH: mother-BLANKING PRESS OPERATOR [place]; father-CAD
All:NKDA
ROS: Constitutional: Negative. Negative for chills, fever and unexpected weight change.
HENT: Negative for ear pain, hearing loss, tinnitus and trouble swallowing.
Eyes: Negative. Negative for photophobia, pain and visual disturbance.
Respiratory: positive for shortness of breath.
Cardiovascular: Negative for chest pain, palpitations and leg swelling.
Gastrointestinal: positive for diarrhea
Endocrine: Negative. Negative for cold intolerance.
Genitourinary: Negative for dysuria, flank pain and urgency.
Musculoskeletal: Negative for back pain, gait problem, neck pain and neck stiffness.
Skin: Negative for rash.
Allergic/Immunologic: Negative. Negative for immunocompromised state.
Neurological: positive for distal paresthesias, ataxia, dysarthria, right forehead numbness
General: Well developed. In no acute distress.
Cardio: Regular rate and rhythm without murmur. Extremities are without cyanosis or edema.
Neuro:
Mental Status: Alert, oriented to person, place, and date. Normal attention and recall. Good fund of knowledge. Follows complex requests across the midline. Comprehension, naming, and repetition intact.
Cranial Nerves: Pupils are equally round and reactive to light. EOMs full. Visual messina full to confrontation. No ptosis. No nystagmus. V1-V3 intact to light touch and pinprick bilaterally, symmetric. Face symmetric. Poor hearing AU. The
palate elevated well. SCMs and traps 5/5. Tongue midline. No dysarthria.
Motor: Normal bulk and tone. No pronator or arm drift. Strength 5/5 throughout. No clonus.
Reflexes: 0+ throughout the upper extremities and knees. 0/2 in AJs. Plantar responses flexor bilaterally.
Sensory: absent vibration at the toes, ankles
Coordination: R dysmetria
Gait: deferred
Assessment and Plan:
I. R PICA/SCA stroke. Likely etiology�embolic.
II. Chronic R pontine infarct.
III. Amnestic MCI
IV. Distal symmetric large fiber polyneuropathy.
-Continue Telemetry monitoring
-Fall/aspiration precautions
-Continue DAPT
-Brain MRI wo clemente
-CTA head/neck
-Lipitor 40 mg QHS.
-PT.
-DVT prophylaxis.
I personally reviewed all radiology and labs along with past medical records pertinent to current medical problems. Total time spent in patient care is 60 minutes.
Thank you for allowing us to participate in the care of this patient. We will continue to follow. Please do not hesitate to contact us with any questions or concerns.
Objective Data
Vital Signs
Temp Pulse Resp BP Pulse Ox
36.7 C 87 17 117/51 95
02/05/25 07:27 02/05/25 07:27 02/05/25 07:27 02/05/25 07:27 02/05/25 07:27
Lab Results
02/05/25 05:53
02/05/25 05:53
Sodium 141 mmol/L (135-145) 02/05/25 05:53
Potassium 4.0 mmol/L (3.5-5.1) 02/05/25 05:53
BUN 13 mg/dl (9-20) 02/05/25 05:53
Glucose 113 mg/dl (70-99) H 02/05/25 05:53
Calcium 9.3 mg/dl (8.4-10.2) 02/05/25 05:53
LDL Cholesterol, Calc 80 mg/dl 02/04/25 21:10
Vitamin B12 > 1000 pg/ml (239-931) H 02/04/25 21:10
Patient Allergies
No Known Allergies Allergy (Verified 02/03/25 23:59)
[2025-02-05] MEDS: NOVOLOG FLEXPEN 4 UNITS SC ×3 (09:46→17:11)
--- NOTE | 2025-02-05 09:52 | W.PN.HOSP.TC ---
Today's Communication/Plan
-
CT-A
stop IVF
PT/OT
Assessment / Plan
Assessment / Plan
#Acute dizziness concern for BPPV versus CVA
#History of CVA with prior visual prodrome( Chronic lacunar infarcts of the right cerebellum and right basal ganglia.) follows with Dr. Sonia Hiugera neurology in [place]
-Check orthostatic vitals
-Consult neurology input appreciated
-MRI brain: Multiple small foci of acute to subacute infarction involving the right cerebellar hemisphere the greatest amount medially and in the inferior to mid hemisphere.
Tiny focus of acute to subacute infarction involving the right lateral medulla.
Focus of old infarction involving the anterior and inferior right thalamus.
Moderate atrophy, advanced for the patient's age of 66 years.
Loss of expected flow-void involving the visualized superior V2 and V3 portions of the right vertebral artery, with diminishment of flow void in the V4 portion of the right vertebral artery. Findings raise concern for slow flow and/or occlusion of
portions of the right vertebral artery. Consider further evaluation with CT or MR angiography of the neck and head.
-Meclizine 12.5 mg 3 times daily scheduled
-stop IV NSS 125 cc an hour
-lipid profile
chol 147/igno315/ldl 80/HDL 30
HgbA1c 7.4%
-Continue aspirin 81 mg qd, atorvastatin 10 mg daily, Plavix 75 mg daily
#Syncope likely vasovagal due to diarrheal losses
#History of diarrhea x 3 days post Ozempic 2.5 mg use for the first time on Sunday
BP 122/80
-Check orthostatic vitals
-Patient given 500 cc NSS in ER, will stop IV NSS 125 cc an hour
CT head: No acute intracranial abnormality
Moderate age-related parenchymal atrophy.
Chronic lacunar infarcts of the right cerebellum and right basal ganglia.
No intra- or extra-axial mass, hemorrhage, or fluid collection.
Mild subcortical, deep, and periventricular white matter low-attenuation, compatible with changes of chronic small vessel ischemic disease.
Mucus retention cysts in the bilateral maxillary sinuses and right sphenoid sinus. The mastoid air cells are clear.
#Abdominal pain with acute diarrhea likely secondary to starting Ozempic
Was on prior Mounjaro for 1 year but was having difficulty with constipation
-Started Ozempic 2 weeks ago first injection persistent nausea second injection nausea and watery diarrhea x 3 days
-Will check stool WBC, stool C. difficile, ova parasites due to large consumption of raw sushi on sale and fried fish sandwiches on Sunday from [employer]
-IV Zofran as needed
-Patient has never had colonoscopy he does send out Cologuard to GI every few years
CT abdomen pelvis with IV contrast: No evidence of acute inflammatory process in the abdomen or pelvis
chronic shotty retroperitoneal lymph nodes
chronic single tiny calcified gallstone in the gallbladder lumen
HTN�benign
Current concern for orthostatic hypotension
Will check orthostatic vitals
Continue losartan 12.5 mg at bedtime with hold parameters
#DM 2
#Diabetic neuropathy
Accu-Cheks with SSI, check HgbA1c
Continue Lantus at 15 units SQ at bedtime instead of 30 units SQ at bedtime while inpatient
Advised patient to stop Ozempic 2 mg subcu and go back to prior Mounjaro but add bowel regimen due to constipation
-Continue NovoLog 4 units with meals
#B12 deficiency
Continue B12 supplement
#Chronic ambulatory dysfunction
#Diabetic neuropathy
Uses walker at baseline
#Class I obesity�BMI 32.9
Patient is currently on Ozempic but with recommendations to switch back to Mounjaro due to side effects however is not making any diet changes
#Chronic snoring
Recommended outpatient sleep study for possible sleep apnea
DVT prophylaxis
SCDs
Full code
Anticipated Discharge: > 48 hours
Subjective/Interval History
-
Date of Service: February 05, 2025
States the dizziness is a little less intense at this time. He believes may be related to Ozempic
Objective Data
-
Labs:
Laboratory Results
02/05/25
05:53
WBC 5.0
Hgb 14.2
Hct 41.0
Plt Count 129 L
Sodium 141
Potassium 4.0
Chloride 106
Carbon Dioxide 26
BUN 13
Creatinine 0.8
Glucose 113 H
Calcium 9.3
Total Bilirubin 0.7
AST 28
ALT 34
Alkaline Phosphatase 68
Vital Signs:
Vital Signs
Temp Pulse Resp BP Pulse Ox
98.1 F 87 17 117/51 95
02/05/25 07:27 02/05/25 07:27 02/05/25 07:27 02/05/25 07:27 02/05/25 07:27
I&O
02/04/25 02/05/25 02/06/25
06:59 06:59 06:59
Intake Total 960 / 960
Output Total 350 / 350 3050 / 3050
Balance -350 / -350 -2089 / -2089
Review of Systems
-
History Source: Patient and Coordinated Provider
Constitutional: Denies Fever
EENT: Reports No Symptoms Reported
Respiratory: Reports No Symptoms
Cardiac: Reports No Symptoms
Abdomen/GI: Reports No Symptoms
Musculoskeletal: Reports No Symptoms
Physical Exam
-
General: Well Developed, Well Nourished and No Apparent Distress
HEENT: Normocephalic, Atraumatic and Moist Mucous Membranes
Respiratory: Clear to Auscultation; Negative Wheezes, Rales or Rhonchi
Cardiac: Regular Rhythm and S1/S2
GI: Soft, Nontender and Nondistended
Musculoskeletal: No Clubbing, No Cyanosis and No Edema
Neuro: Awake, Alert and Oriented
[2025-02-05 10:50] VITALS: BP 144/90
[2025-02-05 11:44] LABS: Glucose - Point of Care 171 mg/dl (70-99)
[2025-02-05] MEDS: NOVOLOG FLEXPEN-LOW RESISTANCE 1 UNITS SC (12:05)
[2025-02-05 14:59] VITALS: BP 96/53
[2025-02-05 16:33] LABS: Glucose - Point of Care 137 mg/dl (70-99)
[2025-02-05] MEDS: LIPITOR 40 MG PO (17:12)
[2025-02-05 19:00] VITALS: BP 102/59
[2025-02-05 21:54] LABS: Glucose - Point of Care 137 mg/dl (70-99)
[2025-02-05 23:00] VITALS: BP 139/84
[2025-02-06 03:00] VITALS: BP 131/79
[2025-02-06 06:00] VITALS: BMI 31.2
[2025-02-06 06:06] LABS: % Basophils 0.4 % (0-2); % Eosinophils 3.7 % (0-6); % Immature Granulocytes 0.4 % (0-0.5); % Lymphocytes 20.2 % (20.5-51.1); % Monocytes 6.7 % (1.7-9.3); % Neutrophils 68.6 % (42.2-75.2); Absolute Eosinophils 0.2 10^3/uL (0-0.7); Absolute Lymphocytes 1.1 10^3/uL (1.2-3.4); Absolute Monocytes 0.4 10^3/uL (0.1-0.6); Absolute Neutrophils 3.9 10^3/uL (1.4-6.5); Hematocrit 42.4 % (39.0-52.0); Hemoglobin 15.1 g/dL (13.0-18.0); Mean Corp Hgb Conc. 35.6 g/dL (33.0-37.0); Mean Corpuscular Hgb 31.2 pg (27.0-31.0); Mean Corpuscular Volume 87.6 fL (80.0-94.0); Mean Platelet Volume 10.8 fL (7.4-10.4); Nucleated Red Blood Cells % 0 % (-); Platelet Count 132 10^3/uL (130-400); Red Blood Cell Count 4.84 10^6/uL (4.70-6.10); Red Cell Dist. Width 12.3 % (11.5-14.5); White Blood Cell Count 5.6 10^3/uL (4.8-10.8)
[2025-02-06 06:45] LABS: ALT (SGPT) 41 U/L (0-50); AST (SGOT) 29 U/L (17-59); Alkaline Phosphatase 68 U/L (38-126); Blood Urea Nitrogen 13 mg/dl (9-20); Calcium 9.3 mg/dl (8.4-10.2); Carbon Dioxide 24 mmol/L (22-30); Chloride 106 mmol/L (98-107); Estimated Creatinine Clearance 115 ml/min; Glucose 125 mg/dl (70-99); Potassium 3.8 mmol/L (3.5-5.1); Sodium 140 mmol/L (135-145); Total Bilirubin 0.7 mg/dl (0.2-1.3); Total Protein 6.3 g/dl (6.3-8.2); eGFR > 60.00
[2025-02-06 07:17] VITALS: BP 129/79
[2025-02-06 07:29] LABS: Glucose - Point of Care 132 mg/dl (70-99)
[2025-02-06] MEDS: NOVOLOG FLEXPEN-LOW RESISTANCE SC (08:15)
[2025-02-06] MEDS: ASPIR LOW (ENTERIC COATED) 81 MG PO (08:45)
[2025-02-06] MEDS: ANTIVERT 12.5 MG PO ×3 (08:45→23:04)
[2025-02-06] MEDS: NOVOLOG FLEXPEN 4 UNITS SC ×3 (08:45→18:07)
[2025-02-06] MEDS: VITAMIN B-12 3000 MCG PO (08:45)
[2025-02-06] MEDS: PLAVIX 75 MG PO (08:45)
[2025-02-06 08:57] VITALS: BP 113/88; BP 117/72; BP 127/87; PULSE 106; PULSE 94; O2SAT 97
--- NOTE | 2025-02-06 09:16 | W.PN.NEURO.1 ---
Today's Communication / Plan
-
.
Subjective/Objective
Subjective Data
Date of Service: February 06, 2025
Neurology Consultation Note.
Mr. De La O continues to have ataxia. No reports of headaches, change in vision or vertigo.
CTA head- right vertebral multisegmental occlusion, 50% of proximal basilar, 75% of left vertebral and moderate R CONFIGURATION MANAGER stenoses.
Brain MRI showed an acute right PICA/SCA infarcts.
TTE-no evidence of intramural thrombus or PFO.
LDL-80, hemoglobin HbA1c�7.4.
PMH: amnestic MCI, R pontine stroke(05/2024), autonomic dysfunction, HTN, DLP, DM, polyneuropathy, ambulatory dysfunction, Apolipoprotein E deficiency, BMI 32 BMI 32
PSH: tonsillectomy
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
FH: mother-PALS NURSE [place]; father-CAD
All:NKDA
ROS: Constitutional: Negative. Negative for chills, fever and unexpected weight change.
HENT: Negative for ear pain, hearing loss, tinnitus and trouble swallowing.
Eyes: Negative. Negative for photophobia, pain and visual disturbance.
Respiratory: positive for shortness of breath.
Cardiovascular: Negative for chest pain, palpitations and leg swelling.
Gastrointestinal: positive for diarrhea
Endocrine: Negative. Negative for cold intolerance.
Genitourinary: Negative for dysuria, flank pain and urgency.
Musculoskeletal: Negative for back pain, gait problem, neck pain and neck stiffness.
Skin: Negative for rash.
Allergic/Immunologic: Negative. Negative for immunocompromised state.
Neurological: positive for distal paresthesias, ataxia, dysarthria, right forehead numbness
General: Well developed. In no acute distress.
Cardio: Regular rate and rhythm without murmur. Extremities are without cyanosis or edema.
Neuro:
Mental Status: Alert, oriented to person, place, and date. Normal attention and recall. Good fund of knowledge. Follows complex requests across the midline. Comprehension, naming, and repetition intact.
Cranial Nerves: Pupils are equally round and reactive to light. EOMs full. Visual messina full to confrontation. No ptosis. No nystagmus. V1-V3 intact to light touch and pinprick bilaterally, symmetric. Face symmetric. Poor hearing AU. The
palate elevated well. SCMs and traps 5/5. Tongue midline. No dysarthria.
Motor: Normal bulk and tone. No pronator or arm drift. Strength 5/5 throughout. No clonus.
Reflexes: 0+ throughout the upper extremities and knees. 0/2 in AJs. Plantar responses flexor bilaterally.
Sensory: absent vibration at the toes, ankles
Coordination: R dysmetria
Gait: deferred
Assessment and Plan:
I. Acute R PICA/SCA stroke. Likely etiology�embolization from intracranial large artery atherosclerosis vs cardioembolism. ICAS is associated with a high risk of recurrent stroke.
II. Chronic R pontine infarct.
III. Amnestic MCI
IV. Distal symmetric large fiber polyneuropathy.
-Continue Telemetry monitoring
-Fall precautions
-Continue DAPT for 90 days
-LDL-C level goal <70 mg/dL
-Lipitor 40 mg QHS.
-PT.
-Outpatient cardiology follow-up (Holter monitoring, ILR)
-DVT prophylaxis.
-Outpatient neurology follow-up
-Please recall neurology service with any questions or concerns.
I personally reviewed all radiology and labs along with past medical records pertinent to current medical problems. Total time spent in patient care is 60 minutes.
Thank you for allowing us to participate in the care of this patient. We will continue to follow. Please do not hesitate to contact us with any questions or concerns.
Objective Data
Vital Signs
Temp Pulse Resp BP Pulse Ox
36.9 C 90 17 129/79 98
04/04/25 07:17 02/06/25 07:17 02/06/25 07:17 02/06/25 07:17 02/06/25 07:17
Lab Results
02/06/25 05:29
02/06/25 05:
Sodium 140 mmol/L (135-145) 02/06/25 05:
Potassium 3.8 mmol/L (3.5-5.1) 02/06/25 05:
BUN 13 mg/dl (9-20) 02/06/25 05:
Glucose 125 mg/dl (70-99) H 02/06/25 05:
Calcium 9.3 mg/dl (8.4-10.2) 02/06/25 05:
LDL Cholesterol, Calc 80 mg/dl 02/04/25 21:10
Vitamin B12 > 1000 pg/ml (239-931) H 02/04/25 21:10
Patient Allergies
No Known Allergies Allergy (Verified 02/03/25 23:59)
Vital Signs and Labs
-
Vital Signs and Labs:
Vital Signs
Temp Pulse Resp BP Pulse Ox
36.9 C 90 17 129/79 98
02/06/25 07:17 02/06/25 07:17 02/06/25 07:17 02/06/25 07:17 02/06/25 07:17
Lab Results
02/06/25 05:29
02/06/25 05:
Sodium 140 mmol/L (135-145) 02/06/25 05:
Potassium 3.8 mmol/L (3.5-5.1) 02/06/25 05:
BUN 13 mg/dl (9-20) 02/06/25 05:29
Glucose 125 mg/dl (70-99) H 02/06/25 05:29
Calcium 9.3 mg/dl (8.4-10.2) 02/06/25 05:29
LDL Cholesterol, Calc 80 mg/dl 02/04/25 21:10
Vitamin B12 > 1000 pg/ml (409-791) H 02/04/25 21:10
Medications
-
Medications:
Generic Name Dose Route Start Last Admin
Trade Name Freq PRN Reason Stop Dose Admin
Aspirin 81 mg 02/06/25 08:00 02/06/25 08:45
Aspirin 81 Mg (Enteric Coated) Tablet PO 03/06/25 07:59 81 mg
DAILY CARLINE Administration
Atorvastatin Calcium 40 mg 02/05/25 18:00 02/05/25 17:12
Atorvastatin (Lipitor) 40 Mg Tablet PO 03/05/25 17:59 40 mg
QPM CARLINE Administration
Clopidogrel Bisulfate 75 mg 02/05/25 08:00 02/06/25 08:45
Clopidogrel 75 Mg Tablet PO 03/05/25 07:59 75 mg
DAILY CARLINE Administration
Cyanocobalamin 3,000 mcg 02/05/25 08:00 02/06/25 08:45
Cyanocobalamin 1,000 Mcg Tablet PO 03/05/25 07:59 3,000 mcg
DAILY CARLINE Administration
Dextrose 12.5 grams 02/04/25 14:19
Dextrose 50% (0.5 Grams/Ml) 50 Ml Syringe IV 03/04/25 14:18
[id number] PRN
hypoglycemia
Protocol
Glucagon 1 mg 02/04/25 14:19
Glucagon 1 Mg Vial IM 03/04/25 14:18
PRN PRN
hypoglycemia
Protocol
Insulin Glargine 15 units/ 0.15 mls @ 0 mls/hr 02/04/25 22:00 02/05/25 22:16
Device SC 03/04/25 21:59 0.15 mls
HS CARLINE Administration
As Directed
Insulin Aspart 0 units 02/04/25 16:30 02/06/25 08:15
Insulin Aspart Low Resistance 300 Units/3 Ml Pen.Injctr SC 03/04/25 16:29 Not Given
AC CARLINE
Protocol
Insulin Aspart 4 units 02/04/25 17:30 02/06/25 08:45
Insulin Aspart (100 Units/Ml) 3 Ml Flexpen SC 03/04/25 17:29 4 units
MEALS CARLINE Administration
Losartan Potassium 12.5 mg 02/04/25 22:00 02/05/25 22:14
Losartan 25 Mg Tablet PO 03/04/25 21:59 12.5 mg
HS CARLINE Administration
Meclizine HCl 12.5 mg 02/04/25 16:00 02/06/25 08:45
Meclizine 12.5 Mg Tablet PO 03/04/25 15:59 12.5 mg
TID CARLINE Administration
Sodium Chloride 0 flush 02/04/25 16:00
Sodium Chloride 0.9% (Flush) Syringe IV 03/04/25 15:59
PER PROTOCOL CARLINE
Home Medications
-
Home Medications
aspirin 325 mg tablet 325 mg PO .2X WEEKLY Blood clot prevention/tx 12/20/22
atorvastatin 10 mg tablet 10 mg PO DAILY@1400 High Cholesterol 05/09/24
insulin aspart U-100 100 unit/mL (3 mL) subcutaneous pen (Novolog FlexPen U-100 Insulin aspart) 4 units SC MEALS Diabetes 05/09/24
losartan 25 mg tablet 12.5 mg (1/2 x 25 mg) PO HS Blood Pressure #0 tabs 05/12/24
clopidogrel 75 mg tablet 75 mg PO DAILY Blood Clot Prevention/Tx 02/04/25
cyanocobalamin (vitamin B-12) 3,000 mcg capsule 3,000 mcg PO DAILY Supplement 02/04/25
insulin glargine 100 unit/mL subcutaneous solution (Lantus U-100 Insulin) 30 unit SC HS Diabetes 02/04/25
metformin 500 mg tablet,extended release 24 hr 500 mg PO BID Diabetes 02/04/25
semaglutide 0.25 mg or 0.5 mg (2 mg/3 mL) subcutaneous pen injector (Ozempic) 2 mg SC WE Diabetes 02/04/25
--- NOTE | 2025-02-06 10:35 | CM ---
PT OT indicate SNF at dc.
As per [facility] can accept pt at [place] after auth.
Will continue PT .Medically not ready for dc today .
Spoke with Beata fernandez available at [facility] [place] after auth
PLAN To [facility] after auth
[2025-02-06 11:05] VITALS: BP 111/78
[2025-02-06 12:00] LABS: Glucose - Point of Care 175 mg/dl (70-99)
--- NOTE | 2025-02-06 12:33 | CON.MR ---
Documented by User: Abena Riggs MD, Resident 02/06/25 15:31
Consultation
Consultation Request
Date/Time Consultation Requested: 02/06/2025
Date/Time Consultation Performed: 02/06/2025
Medical History
-
History of Present Illness:
64-year-old male with past medical history of insulin-dependent diabetes, hyperlipidemia, hypertension who presented to the emergency department with syncope, nausea and diarrhea. Patient states that he was running to the bathroom and he fell
backwards onto the toilet and had explosive diarrhea, did not lose consciousness. He recently switched from Mounjaro to Ozempic and has had nausea and diarrhea since then. Patient has a history of stroke (chronic lacunar infarcts of the right
cerebellum and right basal ganglia) and follows with Dr. Sonia Culver. Initial workup in the ED was unremarkable, CT head no acute intracranial abnormality and CT abdomen negative. However, patient had orthostatic hypotension and intractable
dizziness. Was started on Meclizine 12.5 mg 3 times daily, neurology consulted. MRI brain showed multiple small foci of acute to subacute infarction involving the right cerebellar hemisphere the greatest amount medially and in the inferior to mid
hemisphere. Tiny focus of acute to subacute infarction involving the right lateral medulla. Focus of old infarction involving the anterior and inferior right thalamus. Moderate atrophy, advanced for the patient's age of 66 years. CTA neck/head
showed right vertebral artery occlusion, multifocal narrowing of the V4 portion of the left vertebral artery. 2 focal narrowings of the basilar artery. Diffuse luminal irregularity of the posterior cerebral arteries with focal stenoses of the
proximal P1 portions. Moderate narrowing of the proximal M1 portion of the right middle cerebral artery.
Echo no thrombus or PFO. LDL 80, hemoglobin HbA1c 7.4. DAPT started on 02/05/25. Per neuro, to be continued for 90 days at which point recommends continuing Plavix and stopping aspirin.
DVT Prophylaxis: SCDs
PMH: hypertension, HLD, RBBB, DM2, diabetic neuropathy, obesity, CVA prodrome of blurred vision, chronic ambulatory dysfunction uses walker
PSH: Tonsillectomy
Family History: Early CAD (father [place] age 58)
Social History:
Functional Level Premorbidly: Independent with ADLs and ambulation, patient has a walker and cane at home but does not use them.
Functional Level Currently: Min assist with mobility, mod to max assist with transfer, dependent with LE self care.
Tobacco: Non-smoker
Alcohol: None
Drug use: Denies
Lives with: Roommate (Francisco)
24-hour assistance available: No
Number of floors: 1
# steps to enter: 0
Driving: Yes
Occupation: Retired
Review of Systems:
Constitutional: (x) Normal _
Eye: (x) Normal _
Ear/Nose/Throat: (x) Normal _
Respiratory: (x) Normal _
Cardiovascular: (x) Normal _
Gastrointestinal: (x) Normal _
Genitourinary: (x) Normal _
Musculoskeletal: (x) Normal _
Integumentary: (x) Normal _
Neurologic: (x) Abnormal _ dizziness when sitting in chair, standing
Psychiatric: (x) Normal _
Endocrine: (x) Normal _
Hematologic/Lymphatic: (x) Normal _
Allergic/Immunologic: (x) Normal _
Allergies / Home Medications
Allergy/AdvReac Type Severity Reaction Status Date / Time
No Known Allergies Allergy Verified 02/03/25 23:59
�Medication �Instructions �Recorded �Confirmed �Last Taken �Type
aspirin 325 mg tablet 325 mg PO .2X WEEKLY Blood clot 12/20/22 02/04/25 12/20/22 History
prevention/tx 650 mg
atorvastatin 10 mg tablet 10 mg PO DAILY@1400 High 05/09/24 02/04/25 Unknown History
Cholesterol
insulin aspart U-100 100 unit/mL 4 units SC MEALS Diabetes 05/09/24 02/04/25 Unknown History
(3 mL) subcutaneous pen (Novolog
FlexPen U-100 Insulin aspart)
losartan 25 mg tablet 12.5 mg (2 x 25 mg) PO HS Blood 05/12/24 02/04/25 Unknown Rx
Pressure #0 tabs
clopidogrel 75 mg tablet 75 mg PO DAILY Blood Clot 02/04/25 02/04/25 Unknown History
Prevention/Tx
cyanocobalamin (vitamin B-12) 3,000 mcg PO DAILY Supplement 02/04/25 02/04/25 Unknown History
3,000 mcg capsule
insulin glargine 100 unit/mL 30 unit SC HS Diabetes 02/04/25 02/04/25 Unknown History
subcutaneous solution (Lantus
U-100 Insulin)
metformin 500 mg tablet,extended 500 mg PO BID Diabetes 02/04/25 02/04/25 Unknown History
release 24 hr
semaglutide 0.25 mg or 0.5 mg (2 2 mg SC WE Diabetes 02/04/25 02/04/25 Unknown History
mg/3 mL) subcutaneous pen injector
(Ozempic)
Physical Exam
Active Medications
Generic Name Dose Route Start Last Admin
Trade Name Freq PRN Reason Stop Dose Admin
Aspirin 81 mg 02/06/25 08:00 02/06/25 08:45
Aspirin 81 Mg (Enteric Coated) Tablet PO 03/06/25 07:59 81 mg
DAILY CARLINE Administration
Atorvastatin Calcium 40 mg 02/05/25 18:00 02/05/25 17:12
Atorvastatin (Lipitor) 40 Mg Tablet PO 03/05/25 17:59 40 mg
QPM CARLINE Administration
Clopidogrel Bisulfate 75 mg 02/05/25 08:00 02/06/25 08:45
Clopidogrel 75 Mg Tablet PO 03/05/25 07:59 75 mg
DAILY CARLINE Administration
Cyanocobalamin 3,000 mcg 02/05/25 08:00 02/06/25 08:45
Cyanocobalamin 1,000 Mcg Tablet PO 03/05/25 07:59 3,000 mcg
DAILY CARLINE Administration
Dextrose 12.5 grams 02/04/25 14:19
Dextrose 50% (0.5 Grams/Ml) 50 Ml Syringe IV 03/04/25 14:18
[id number] PRN
hypoglycemia
Protocol
Glucagon 1 mg 02/04/25 14:19
Glucagon 1 Mg Vial IM 03/04/25 14:18
PRN PRN
hypoglycemia
Protocol
Insulin Glargine 15 units/ 0.15 mls @ 0 mls/hr 02/04/25 22:00 02/05/25 22:16
Device SC 03/04/25 21:59 0.15 mls
HS CARLINE Administration
As Directed
Insulin Aspart 0 units 02/04/25 16:30 02/06/25 08:15
Insulin Aspart Low Resistance 300 Units/3 Ml Pen.Injctr SC 03/04/25 16:29 Not Given
AC CARLINE
Protocol
Insulin Aspart 4 units 02/04/25 17:30 02/06/25 08:45
Insulin Aspart (100 Units/Ml) 3 Ml Flexpen SC 03/04/25 17:29 4 units
MEALS CARLINE Administration
Losartan Potassium 12.5 mg 02/04/25 22:00 02/05/25 22:14
Losartan 25 Mg Tablet PO 03/04/25 21:59 12.5 mg
HS CARLINE Administration
Meclizine HCl 12.5 mg 02/04/25 16:00 02/06/25 08:45
Meclizine 12.5 Mg Tablet PO 03/04/25 15:59 12.5 mg
TID CARLINE Administration
Sodium Chloride 0 flush 02/04/25 16:00
Sodium Chloride 0.9% (Flush) Syringe IV 03/04/25 15:59
PER PROTOCOL CARLINE
Vital Signs
Temp Pulse Resp BP Pulse Ox
98.6 F 89 19 111/78 96
02/06/25 11:05 02/06/25 11:05 02/06/25 11:05 02/06/25 11:05 02/06/25 11:05
Height 5 ft 8 in
Actual Weight 93.015 kg
Body Mass Index (BMI) 31.2
Physical Exam
Physical Exam:
General Appearance/Observation: Well-developed, well-nourished individual in no apparent distress.
Pain/Comfort Assessment: Denies
Mood/Affect: Appropriate
Integumentary/Operative Site:
Pressure Ulcer: absent
Other Type of Wound: absent
Eyes: Conjunctiva/Lids: normal Pupils: pupils equal round and reactive to light and accommodation
Ears/Nose/Throat: oral mucosa moist, throat clear. Lips/Teeth/Gums: Poor oral health
Neck: No muscle spasm or tenderness
Cardiovascular: Heart: regular, no murmur
Pulses: dorsalis pedis 2+ bilaterally
Respiratory: Respiratory Effort/Chest Expansion: normal Auscultation: Clear to auscultation bilaterally
Gastrointestinal: abdomen mildly tender on LLQ w/o guarding and rebound, no distension, normal abdominal bowel sounds
Genitourinary: No Edmondson
Rectal Exam: Deferred
Extremities: Edema: None Cyanosis: None Trophic changes: None
Infrapatellar abrasion on right knee
Neurology Exam:
Orientation: Alert, Oriented to self, Time, Place
Memory: Intact immediately and at 3 minutes
Higher cortical function
Speech: Intact
Repetition: Intact
Comprehension: Intact
Two step command: Intact
Naming: Intact
Cranial Nerves:
CNII: Pupillary light reflex: Intact Visual Field: Intact
CN III, IV, : Extraocular muscles: Intact
CN V: Facial Sensation at Forehead: Intact , Maxilla: Intact, Mandible: Intact
CN VII: Facial movement: Symmetric
CN VIII: Hearing: Normal
CN IX/X: Speech & swallow: Normal, Position of Uvula: Midline
CN XI: Shoulder shrug: Symmetric
CN XII: Tongue protrusion: Midline
Sensory:
Light touch: Diminished sensation on left lower extremity (distal and lateral calf region) and right upper extremity (dorsum of right hand)
Reflexes:
Biceps: 2+ bilaterally
Brachioradialis: 2+ bilaterally
Triceps: 2+ bilaterally
Patellar: 2+ bilaterally
Achilles: 2+ bilaterally
Babinski: Downgoing bilaterally
Clonus: None
Charley: Negative bilaterally
Cerebellar: [id number]: Intact bilaterally, ataxia (+)
Musculoskeletal:
Motor: (Manual muscle scale 0-5)
Muscle SA EF WE EE FF FA HF KE DF EHL PF
Right 4 4 4 4 5 5 4+ 5 5 5 5
Left 4 4 4 4 4 5 4+ 5 5 5 5
Tone: Normal in all extremities
Range of Motion: Passively within normal limits in all extremities
Lab Results
02/06/25 05:29
02/06/25 05:
WBC 5.6 10^3/uL (4.8-10.8) 02/06/25 05:
Hgb 15.1 g/dL (13.0-18.0) 02/06/25 05:
Hct 42.4 % (39.0-52.0) 02/06/25 05:
MCV 87.6 fL (80.0-94.0) 02/06/25 05:
Plt Count 132 10^3/uL (130-400) 02/06/25 05:
Sodium 140 mmol/L (135-145) 02/06/25 05:
Potassium 3.8 mmol/L (3.5-5.1) 02/06/25 05:
Chloride 106 mmol/L (98-107) 02/06/25 05:
Carbon Dioxide 24 mmol/L (22-30) 02/06/25 05:
BUN 13 mg/dl (9-20) 02/06/25 05:
Creatinine 0.7 mg/dL (0.7-1.3) 02/06/25 05:29
eGFR > 60.00 02/06/25 05:29
Glucose 125 mg/dl (70-99) H 02/06/25 05:29
Hemoglobin A1c 7.4 % (4.0-5.6) H 02/05/25 05:53
Calcium 9.3 mg/dl (8.4-10.2) 02/06/25 05:29
Total Bilirubin 0.7 mg/dl (0.2-1.3) 02/06/25 05:29
AST 29 U/L (17-59) 02/06/25 05:29
ALT 41 U/L (0-50) 02/06/25 05:29
Alkaline Phosphatase 68 U/L (38-126) 02/06/25 05:29
Total Protein 6.3 g/dl (6.3-8.2) 02/06/25 05:29
Albumin 4.0 g/dl (3.5-5.0) 02/06/25 05:29
Diagnostic Results
As per HPI.
Assessment / Plan
Plan
PM&R PT/OT to increase independence with ADLs, improve balance, coordination, endurance, strength, mobility, community reintegration, decreased burden of care on others and family education.
CVA: Secondary prophylaxis with aspirin, statin, and blood pressure control (SBP less than 180 and diastolic less than 100 to participate with therapy for ischemic stroke). Continue to monitor neurologic status. Per neurology, DAPT X 90 days.
Peripheral polyneuropathy: There are many potential etiologies of this type of neuropathy. Common etiologies include diabetes, alcohol use, B12, thyroid disorder, autoimmune concerns. It is reasonable to check a B12, TSH. Hemoglobin A1c 7.4. Patient
at high risk of falling with subsequent significant neuropathy.
HTN: continue medications, monitor closely
HLD: continue statin
DM II: Accu-Cheks, continue insulin.
Psych: Monitor mood, adjust medications as needed.
Skin: monitor for pressure sores/rashes/lesions.
Pain: acetaminophen or oxycodone as needed.
Vertigo: Can consider increasing meclizine dose to 25-50 twice daily.
Bowel: Colace and Senna, PRN bisacodyl.
Bladder: Time void, PVRs, PRN straight cath.
DVT Prophylaxis: SCDs
Obesity: Continue to college admissions counselor patient about diet adjustments to control obesity. Body habitus and increased force to move body and extremities causes further difficulty with functional tasks.
Safety: Continue to reinforce assistance with all transfers.
Code Status: Full code
Dispo (date/plan/equipment needs): Acute rehab. Social history reviewed.
Functional and Medical Goals: Modified Independent with ADL�s, ambulation, transfers
Summary
-
Summary of recommendations:
- Discharge Destination: Acute rehab
Thank you for allowing me to care for your patient. Please contact me with any questions or concerns.
Comments
-
This note was dictated using a voice recognition system. Please excuse any typographical errors from clinical operations manager. If you believe there are any discrepancies, please notify our office.

Documented by User: Leonidas Zarate MD 02/06/25 17:53
Consultation
Consultation Request
Requesting Provider: Dr. Blair Irvin
Performing Provider: Dr. Zarate
Reason for Consultation: Stroke
Medical History
-
Chief Complaint: Stroke
History of Present Illness:
64-year-old male with past medical history of insulin-dependent diabetes, hyperlipidemia, hypertension who presented to the emergency department with syncope, nausea and diarrhea. Patient states that he was running to the bathroom and he fell
backwards onto the toilet and had explosive diarrhea, did not lose consciousness. He recently switched from Mounjaro to Ozempic and has had nausea and diarrhea since then. Patient has a history of stroke (chronic lacunar infarcts of the right
cerebellum and right basal ganglia) and follows with Dr. Sonia Culver. Initial workup in the ED was unremarkable, CT head no acute intracranial abnormality and CT abdomen negative. However, patient had orthostatic hypotension and intractable
dizziness. Was started on Meclizine 12.5 mg 3 times daily, neurology consulted. MRI brain showed multiple small foci of acute to subacute infarction involving the right cerebellar hemisphere the greatest amount medially and in the inferior to mid
hemisphere. Tiny focus of acute to subacute infarction involving the right lateral medulla. Focus of old infarction involving the anterior and inferior right thalamus. Moderate atrophy, advanced for the patient's age of 66 years. CTA neck/head
showed right vertebral artery occlusion, multifocal narrowing of the V4 portion of the left vertebral artery. 2 focal narrowings of the basilar artery. Diffuse luminal irregularity of the posterior cerebral arteries with focal stenoses of the
proximal P1 portions. Moderate narrowing of the proximal M1 portion of the right middle cerebral artery.
Echo no thrombus or PFO. LDL 80, hemoglobin HbA1c 7.4. DAPT started on 02/05/25. Per neuro, to be continued for 90 days at which point recommends continuing Plavix and stopping aspirin.
DVT Prophylaxis: SCDs
PMH: hypertension, HLD, RBBB, DM2, diabetic neuropathy, obesity, CVA prodrome of blurred vision, chronic ambulatory dysfunction uses walker
PSH: Tonsillectomy
Family History: Early CAD (father [place] age 58)
Social History:
Functional Level Premorbidly: Independent with ADLs and ambulation, patient has a walker and cane at home but does not use them.
Functional Level Currently: Min assist with mobility, mod to max assist with transfer, dependent with LE self care.
Tobacco: Non-smoker
Alcohol: None
Drug use: Denies
Lives with: Roommate (Francisco)
24-hour assistance available: No
Number of floors: 1
# steps to enter: 0
Driving: Yes
Occupation: Retired
Review of Systems:
Constitutional: (x) abNormal _fatigue
Eye: (x) Normal _
Ear/Nose/Throat: (x) Normal _
Respiratory: (x) Normal _
Cardiovascular: (x) Normal _
Gastrointestinal: (x) Normal _
Genitourinary: (x) Normal _
Musculoskeletal: (x) Normal _
Integumentary: (x) Normal _
Neurologic: (x) Abnormal _ dizziness when sitting in chair, standing. Had some numbness which seems to have resolved. Difficulty walking.
Psychiatric: (x) Normal _
Endocrine: (x) Normal _
Hematologic/Lymphatic: (x) Normal _
Allergic/Immunologic: (x) Normal _
Physical Exam
Physical Exam
Physical Exam:
General Appearance/Observation: Well-developed, well-nourished male in no apparent distress.
Pain/Comfort Assessment: Denies
Mood/Affect: Appropriate
Integumentary/Operative Site:
Pressure Ulcer: absent
Eyes: Conjunctiva/Lids: normal Pupils: pupils equal round and reactive to light and accommodation
Ears/Nose/Throat: oral mucosa moist, throat clear. Lips/Teeth/Gums: Poor oral health
Neck: No muscle spasm or tenderness
Cardiovascular: Heart: regular, no murmur
Pulses: dorsalis pedis 2+ bilaterally
Respiratory: Respiratory Effort/Chest Expansion: normal Auscultation: Clear to auscultation bilaterally
Gastrointestinal: abdomen mildly tender on LLQ w/o guarding and rebound, no distension, normal abdominal bowel sounds
Genitourinary: No Edmondson
Rectal Exam: Deferred
Extremities: Edema: None Cyanosis: None Trophic changes: None
Infrapatellar abrasion on right knee
Neurology Exam:
Orientation: Alert, Oriented to self, Time, Place
Memory: Intact for recent medical concerns.
Repetition: Intact
Comprehension: Intact
Two step command: Intact
Cranial Nerves:
CNII: Pupillary light reflex: Intact Visual Field: Intact
CN III, IV, : Extraocular muscles: Intact
CN V: Facial Sensation at Forehead: Intact , Maxilla: Intact, Mandible: Intact
CN VII: Facial movement: Symmetric
CN VIII: Hearing: Normal
CN IX/X: Speech & swallow: Normal, Position of Uvula: Midline
CN XI: Shoulder shrug: Symmetric
CN XII: Tongue protrusion: Midline
Sensory:
Light touch: Diminished sensation on left lower extremity (distal and lateral calf region) and right upper extremity (dorsum of right hand)
Reflexes:
Biceps: 2+ bilaterally
Brachioradialis: 2+ bilaterally
Triceps: 2+ bilaterally
Patellar: 2+ bilaterally
Achilles: 2+ bilaterally
Babinski: Downgoing bilaterally
Clonus: None
Charley: Negative bilaterally
Cerebellar: [id number]: Intact bilaterally, ataxia (+)
Musculoskeletal: Motor: (Manual muscle scale 0-5)
Muscle SA EF WE EE FF FA HF KE DF EHL PF
Right 4 4 4 4 4 4 4+ 5 5 5 5
Left 4 5 5 4+ 5 5 4+ 5 5 5 5
Tone: Normal in all extremities
Range of Motion: Passively within normal limits in all extremities
Assessment / Plan
Assessment
64-year-old Right handed [facility] (hypertension, HLD, RBBB, DM2, diabetic neuropathy, obesity, CVA prodrome of blurred vision, CVA uses walker) with explosive diarrhea thought secondary to Ozempic and has had nausea and diarrhea since then, orthostatic
hypotension and intractable dizziness secondary to multiple small foci of acute to subacute infarction involving the right cerebellar hemisphere and right lateral medulla, with significant vascular disease in the brain resulting in ADL, and
ambulatory dysfunction.
Plan
PM&R PT/OT to increase independence with ADLs, improve balance, coordination, endurance, strength, mobility, community reintegration, decreased burden of care on others and family education.
CVA: Secondary prophylaxis with aspirin, statin, and blood pressure control (SBP less than 180 and diastolic less than 100 to participate with therapy for ischemic stroke). Continue to monitor neurologic status. Per neurology, DAPT X 90 days.
Possibly diabetic peripheral polyneuropathy: Notes some numbness and tingling concerns in general but do not fit a specific stroke or radicular pathway that seems to now have resolved. Common etiologies include diabetes, alcohol use, B12, thyroid
disorder, autoimmune concerns. It is reasonable to check a B12, TSH. Hemoglobin A1c elevated at 7.4. Patient at high risk of falling with neuropathy. Could consider outpatient EMG/nerve conduction study and neurology follow-up.
HTN: Losartan, monitor
HLD: continue statin
DM II: Accu-Cheks, continue insulin sliding scale and aspart 4 units with meals and 15 units of glargine.
Psych: Monitor mood, adjust medications as needed.
Skin: monitor for pressure sores/rashes/lesions.
Pain: acetaminophen as needed.
Vertigo: Suggest increasing meclizine dose to 25-50 twice daily.
Bowel: Colace and Senna, PRN bisacodyl.
Bladder: Time void, PVRs, PRN straight cath.
DVT Prophylaxis: SCDs, suggest chemoprophylaxis heparin or Lovenox.
Obesity: Continue to college admissions counselor patient about diet adjustments to control obesity. Body habitus and increased force to move body and extremities causes further difficulty with functional tasks.
Safety: Continue to reinforce assistance with all transfers.
Code Status: Full code
Dispo (date/plan/equipment needs): Acute rehab. Social history reviewed.
Functional and Medical Goals: Modified Independent with ADL�s, ambulation, transfers
I personally performed a history and physical exam of the patient and discussed management with the resident. I reviewed the resident's note and agree with the documented findings and plan of care HPI/CC. Physical exam and plan updated with my
findings and plan. A total of 60 minutes were spent with the patient preparing for the evaluation, obtaining history, performing examination and evaluation, counseling, data review, case management, care coordination, order desk clerk, and EMR
documentation.
Summary
-
Summary of recommendations:
- Discharge Destination: Acute inpatient rehabilitation
CVA: Secondary prophylaxis with aspirin, statin, and blood pressure control (SBP less than 180 and diastolic less than 100 to participate with therapy for ischemic stroke). Continue to monitor neurologic status. Per neurology, DAPT X 90 days.
Possibly diabetic peripheral polyneuropathy: Notes some numbness and tingling concerns in general but do not fit a specific stroke or radicular pathway that seems to now have resolved. Common etiologies include diabetes, alcohol use, B12, thyroid
disorder, autoimmune concerns. It is reasonable to check a B12, TSH. Hemoglobin A1c elevated at 7.4. Patient at high risk of falling with neuropathy. Could consider outpatient EMG/nerve conduction study and neurology follow-up.
Vertigo: Suggest increasing meclizine dose to 25-50 twice daily.
Bowel: Colace and Senna, PRN bisacodyl.
Bladder: Time void, PVRs, PRN straight cath.
DVT Prophylaxis: SCDs, suggest chemoprophylaxis heparin or Lovenox.
Thank you for allowing me to care for your patient. Please contact me with any questions or concerns.
[2025-02-06] MEDS: NOVOLOG FLEXPEN-LOW RESISTANCE 1 UNITS SC ×2 (13:17→18:07)
--- NOTE | 2025-02-06 14:27 | W.PN.HOSP.TC ---
Today's Communication/Plan
-
Lipitor increased from 10 mg to 40 mg qday
PT/OT
changed status to inpt
Assessment / Plan
Assessment / Plan
#Acute dizziness most likely CVA
As per neuro, Dr. Chen: 'I. Acute R PICA/SCA stroke. Likely etiology�embolization from intracranial large artery atherosclerosis vs cardioembolism. ICAS is associated with a high risk of recurrent stroke.
II. Chronic R pontine infarct.
III. Amnestic MCI
IV. Distal symmetric large fiber polyneuropathy.'
#History of CVA with prior visual prodrome( Chronic lacunar infarcts of the right cerebellum and right basal ganglia.) follows with Dr. Sonia Higuera neurology in [place]
-Check orthostatic vitals
-Consult neurology input appreciated
-MRI brain: Multiple small foci of acute to subacute infarction involving the right cerebellar hemisphere the greatest amount medially and in the inferior to mid hemisphere.
Tiny focus of acute to subacute infarction involving the right lateral medulla.
Focus of old infarction involving the anterior and inferior right thalamus.
Moderate atrophy, advanced for the patient's age of 66 years.
Loss of expected flow-void involving the visualized superior V2 and V3 portions of the right vertebral artery, with diminishment of flow void in the V4 portion of the right vertebral artery. Findings raise concern for slow flow and/or occlusion of
portions of the right vertebral artery. Consider further evaluation with CT or MR angiography of the neck and head.
-Meclizine 12.5 mg 3 times daily scheduled
-stop IV NSS 125 cc an hour
-lipid profile
chol 147/ubhp524/ldl 80/HDL 30
HgbA1c 7.4%
-Continue aspirin 81 mg qd, atorvastatin 40 mg daily, Plavix 75 mg daily
#Syncope likely vasovagal due to diarrheal losses
#History of diarrhea x 3 days post Ozempic 2.5 mg use for the first time on Sunday
BP 122/80
-Check orthostatic vitals
-Patient given 500 cc NSS in ER, will stop IV NSS [address] head: No acute intracranial abnormality
Moderate age-related parenchymal atrophy.
Chronic lacunar infarcts of the right cerebellum and right basal ganglia.
No intra- or extra-axial mass, hemorrhage, or fluid collection.
Mild subcortical, deep, and periventricular white matter low-attenuation, compatible with changes of chronic small vessel ischemic disease.
Mucus retention cysts in the bilateral maxillary sinuses and right sphenoid sinus. The mastoid air cells are clear.
#Abdominal pain with acute diarrhea likely secondary to starting Ozempic
Was on prior Mounjaro for 1 year but was having difficulty with constipation
-Started Ozempic 2 weeks ago first injection persistent nausea second injection nausea and watery diarrhea x 3 days
-Will check stool WBC, stool C. difficile, ova parasites due to large consumption of raw sushi on sale and fried fish sandwiches on Sunday from [employer]
-IV Zofran as needed
-Patient has never had colonoscopy he does send out Cologuard to GI every few years
CT abdomen pelvis with IV contrast: No evidence of acute inflammatory process in the abdomen or pelvis
chronic shotty retroperitoneal lymph nodes
chronic single tiny calcified gallstone in the gallbladder lumen
HTN�benign
Current concern for orthostatic hypotension
Will check orthostatic vitals
Continue losartan 12.5 mg at bedtime with hold parameters
#DM 2
#Diabetic neuropathy
Accu-Cheks with SSI
Continue Lantus at 15 units SQ at bedtime instead of 30 units SQ at bedtime while inpatient
Advised patient to stop Ozempic 2 mg subcu and go back to prior Mounjaro but add bowel regimen due to constipation
-Continue NovoLog 4 units with meals
#B12 deficiency
Continue B12 supplement
#Chronic ambulatory dysfunction
#Diabetic neuropathy
Uses walker at baseline
#Class I obesity�BMI 32.9
Patient is currently on Ozempic but with recommendations to switch back to Mounjaro due to side effects however is not making any diet changes
#Chronic snoring
Recommended outpatient sleep study for possible sleep apnea
DVT prophylaxis
SCDs
-Continue Telemetry monitoring
-Continue DAPT for 90 days
at which point neuro recommends continue Plavix ans stop ASA
-LDL <70 mg/dL (currently 80)
-Lipitor 40 mg QHS has been ordered
-Outpatient cardiology follow-up (Holter monitoring, ILR)
SNF transfer early next week
Full code
Anticipated Discharge: > 48 hours
Subjective/Interval History
-
Date of Service: February 06, 2025
Still with dizziness
Objective Data
-
Labs:
Laboratory Results
02/06/25
05:29
WBC 5.6
Hgb 15.1
Hct 42.4
Plt Count 132
Sodium 140
Potassium 3.8
Chloride 106
Carbon Dioxide 24
BUN 13
Creatinine 0.7
Glucose 125 H
Calcium 9.3
Total Bilirubin 0.7
AST 29
ALT 41
Alkaline Phosphatase 68
Vital Signs:
Vital Signs
Temp Pulse Resp BP Pulse Ox
98.6 F 89 19 111/78 96
02/06/25 11:05 02/06/25 11:05 02/06/25 11:05 02/06/25 11:05 02/06/25 11:05
I&O
02/05/25 02/06/25 02/07/25
06:59 06:59 06:59
Intake Total 960 / 960 960 / 960
Output Total 3050 / 3050 1575 / 1575
Balance -2089 / -2089 -615 / -615
Review of Systems
-
History Source: Patient and Coordinated Provider
Constitutional: Denies Fever
EENT: Reports No Symptoms Reported
Respiratory: Reports No Symptoms
Cardiac: Reports No Symptoms
Abdomen/GI: Reports No Symptoms
Musculoskeletal: Reports No Symptoms
Neuro: Reports Dizzy
Physical Exam
-
General: Well Developed, Well Nourished and No Apparent Distress
HEENT: Normocephalic, Atraumatic and Moist Mucous Membranes
Respiratory: Clear to Auscultation; Negative Wheezes, Rales or Rhonchi
Cardiac: Regular Rhythm and S1/S2
GI: Soft, Nontender and Nondistended
Musculoskeletal: No Clubbing, No Cyanosis and No Edema
Neuro: Awake, Alert and Oriented
[2025-02-06 15:10] VITALS: BP 117/82
[2025-02-06 16:49] LABS: Glucose - Point of Care 181 mg/dl (70-99)
[2025-02-06] MEDS: LIPITOR 40 MG PO (18:06)
[2025-02-06] MEDS: COZAAR 12.5 MG PO (23:05)
[2025-02-06] MEDS: LANTUS 0.15 UNITS SC (23:06)
[2025-02-06 23:53] VITALS: BP 136/86
[2025-02-07 01:53] LABS: Urine Albumin Negative (Neg - Trace); Urine Bilirubin Negative (Negative); Urine Character Clear (Clear); Urine Color Yellow; Urine Glucose Negative (Negative); Urine Ketone Negative (Negative); Urine Leukocyte Negative (Negative); Urine Nitrite Negative (Negative); Urine Occult Blood Negative (Negative); Urine Specific Gravity 1.015 (<1.030); Urine Urobilinogen Negative (Neg - 1+)
[2025-02-07 03:20] VITALS: BP 136/88
[2025-02-07 06:00] VITALS: BMI 31.4
[2025-02-07 07:53] VITALS: BP 118/80
[2025-02-07 07:56] LABS: % Basophils 0.4 % (0-2); % Eosinophils 3.7 % (0-6); % Immature Granulocytes 0.4 % (0-0.5); % Lymphocytes 17.4 % (20.5-51.1); % Neutrophils 72.1 % (42.2-75.2); Absolute Eosinophils 0.3 10^3/uL (0-0.7); Absolute Lymphocytes 1.2 10^3/uL (1.2-3.4); Absolute Monocytes 0.4 10^3/uL (0.1-0.6); Absolute Neutrophils 5.1 10^3/uL (1.4-6.5); Hematocrit 43.1 % (39.0-52.0); Hemoglobin 15.1 g/dL (13.0-18.0); Mean Corpuscular Hgb 30.5 pg (27.0-31.0); Mean Corpuscular Volume 87.1 fL (80.0-94.0); Mean Platelet Volume 10.5 fL (7.4-10.4); Nucleated Red Blood Cells % 0 % (-); Platelet Count 150 10^3/uL (130-400); Red Blood Cell Count 4.95 10^6/uL (4.70-6.10); Red Cell Dist. Width 12.6 % (11.5-14.5); White Blood Cell Count 7.1 10^3/uL (4.8-10.8)
[2025-02-07 08:02] LABS: Glucose - Point of Care 122 mg/dl (70-99)
[2025-02-07 08:11] LABS: ALT (SGPT) 36 U/L (0-50); AST (SGOT) 22 U/L (17-59); Albumin 3.6 g/dl (3.5-5.0); Alkaline Phosphatase 69 U/L (38-126); Blood Urea Nitrogen 17 mg/dl (9-20); Calcium 9.3 mg/dl (8.4-10.2); Carbon Dioxide 23 mmol/L (22-30); Chloride 106 mmol/L (98-107); Estimated Creatinine Clearance 101 ml/min; Glucose 139 mg/dl (70-99); Sodium 139 mmol/L (135-145); Total Bilirubin 0.8 mg/dl (0.2-1.3); eGFR > 60.00
[2025-02-07] MEDS: NOVOLOG FLEXPEN-LOW RESISTANCE SC (08:52)
[2025-02-07] MEDS: NOVOLOG FLEXPEN 4 UNITS SC ×3 (08:54→17:35)
[2025-02-07] MEDS: VITAMIN B-12 3000 MCG PO (08:58)
[2025-02-07] MEDS: ANTIVERT 12.5 MG PO ×3 (08:58→22:31)
[2025-02-07] MEDS: PLAVIX 75 MG PO (08:59)
[2025-02-07] MEDS: ASPIR LOW (ENTERIC COATED) 81 MG PO (08:59)
[2025-02-07 11:31] VITALS: BP 104/75
[2025-02-07 12:00] LABS: Glucose - Point of Care 184 mg/dl (70-99)
--- NOTE | 2025-02-07 12:50 | W.PN.HOSP.TC ---
Today's Communication/Plan
-
will need dc to SNF for rehab
Assessment / Plan
Assessment / Plan
#Acute dizziness most likely CVA
As per neuro, Dr. Chen: 'I. Acute R PICA/SCA stroke. Likely etiology�embolization from intracranial large artery atherosclerosis vs cardioembolism. ICAS is associated with a high risk of recurrent stroke.
II. Chronic R pontine infarct.
III. Amnestic MCI
IV. Distal symmetric large fiber polyneuropathy.'
#History of CVA with prior visual prodrome( Chronic lacunar infarcts of the right cerebellum and right basal ganglia.) follows with Dr. Sonia Higuera neurology in [place]
-Check orthostatic vitals
-Consult neurology input appreciated
-MRI brain: Multiple small foci of acute to subacute infarction involving the right cerebellar hemisphere the greatest amount medially and in the inferior to mid hemisphere.
Tiny focus of acute to subacute infarction involving the right lateral medulla.
Focus of old infarction involving the anterior and inferior right thalamus.
Moderate atrophy, advanced for the patient's age of 66 years.
Loss of expected flow-void involving the visualized superior V2 and V3 portions of the right vertebral artery, with diminishment of flow void in the V4 portion of the right vertebral artery. Findings raise concern for slow flow and/or occlusion of
portions of the right vertebral artery. Consider further evaluation with CT or MR angiography of the neck and head.
-Meclizine 12.5 mg 3 times daily scheduled
-stop IV NSS 125 cc an hour
-lipid profile
chol 147/nnge236/ldl 80/HDL 30
HgbA1c 7.4%
-Continue aspirin 81 mg qd, atorvastatin 40 mg daily, Plavix 75 mg daily
#Syncope likely vasovagal due to diarrheal losses
#History of diarrhea x 3 days post Ozempic 2.5 mg use for the first time on Sunday
BP 122/80
-Check orthostatic vitals
-Patient given 500 cc NSS in ER, will stop IV NSS [address] head: No acute intracranial abnormality
Moderate age-related parenchymal atrophy.
Chronic lacunar infarcts of the right cerebellum and right basal ganglia.
No intra- or extra-axial mass, hemorrhage, or fluid collection.
Mild subcortical, deep, and periventricular white matter low-attenuation, compatible with changes of chronic small vessel ischemic disease.
Mucus retention cysts in the bilateral maxillary sinuses and right sphenoid sinus. The mastoid air cells are clear.
#Abdominal pain with acute diarrhea likely secondary to starting Ozempic
Was on prior Mounjaro for 1 year but was having difficulty with constipation
-Started Ozempic 2 weeks ago first injection persistent nausea second injection nausea and watery diarrhea x 3 days
-Will check stool WBC, stool C. difficile, ova parasites due to large consumption of raw sushi on sale and fried fish sandwiches on Sunday from [employer]
-IV Zofran as needed
-Patient has never had colonoscopy he does send out Cologuard to GI every few years
CT abdomen pelvis with IV contrast: No evidence of acute inflammatory process in the abdomen or pelvis
chronic shotty retroperitoneal lymph nodes
chronic single tiny calcified gallstone in the gallbladder lumen
HTN�benign
Current concern for orthostatic hypotension
Will check orthostatic vitals
Continue losartan 12.5 mg at bedtime with hold parameters
#DM 2
#Diabetic neuropathy
Accu-Cheks with SSI
glu 122-184
Continue Lantus at 15 units SQ at bedtime instead of 30 units SQ at bedtime while inpatient
Advised patient to stop Ozempic 2 mg subcu and go back to prior Mounjaro but add bowel regimen due to constipation
-Continue NovoLog 4 units with meals
#B12 deficiency
Continue B12 supplement
#Chronic ambulatory dysfunction
#Diabetic neuropathy
Uses walker at baseline
#Class I obesity�BMI 32.9
Patient is currently on Ozempic but with recommendations to switch back to Mounjaro due to side effects however is not making any diet changes
#Chronic snoring
Recommended outpatient sleep study for possible sleep apnea
DVT prophylaxis
SCDs
-Continue Telemetry monitoring
-Continue DAPT for 90 days
at which point neuro recommends continue Plavix and stop ASA
-LDL <70 mg/dL (currently 80)
-Lipitor 40 mg QHS has been ordered
-Outpatient cardiology follow-up (Holter monitoring, ILR)
SNF transfer early next week
Full code
Anticipated Discharge: > 48 hours
Subjective/Interval History
-
Date of Service: February 07, 2025
Pt believes dizziness may be somewhat less intense today
Objective Data
-
Labs:
Laboratory Results
02/07/25
07:27
WBC 7.1
Hgb 15.1
Hct 43.1
Plt Count 150
Sodium 139
Potassium 4.0
Chloride 106
Carbon Dioxide 23
BUN 17
Creatinine 0.8
Glucose 139 H
Calcium 9.3
Total Bilirubin 0.8
AST 22
ALT 36
Alkaline Phosphatase 69
Vital Signs:
Vital Signs
Temp Pulse Resp BP Pulse Ox
97.3 F 102 16 104/75 97
02/07/25 11:31 02/07/25 11:31 02/07/25 11:31 02/07/25 11:31 02/07/25 11:31
I&O
02/06/25 02/07/25 02/08/25
06:59 06:59 06:59
Intake Total 960 / 960 780 / 780
Output Total 1575 / 1575 1575 / 1575
Balance -615 / -615 -795 / -795
Review of Systems
-
History Source: Patient and Coordinated Provider
Constitutional: Denies Fever
EENT: Reports No Symptoms Reported
Respiratory: Reports No Symptoms
Cardiac: Reports No Symptoms
Abdomen/GI: Reports No Symptoms
Musculoskeletal: Reports No Symptoms
Neuro: Reports Dizzy
Physical Exam
-
General: Well Developed, Well Nourished and No Apparent Distress
HEENT: Normocephalic, Atraumatic and Moist Mucous Membranes
Respiratory: Clear to Auscultation; Negative Wheezes, Rales or Rhonchi
Cardiac: Regular Rhythm and S1/S2
GI: Soft, Nontender and Nondistended
Musculoskeletal: No Clubbing, No Cyanosis and No Edema
Neuro: Awake, Alert and Oriented
[2025-02-07] MEDS: NOVOLOG FLEXPEN-LOW RESISTANCE 1 UNITS SC ×2 (14:23→17:34)
[2025-02-07 15:34] VITALS: BP 114/81
[2025-02-07 16:43] LABS: Glucose - Point of Care 184 mg/dl (70-99)
[2025-02-07] MEDS: LIPITOR 40 MG PO (17:34)
[2025-02-07 19:00] VITALS: BP 124/79
[2025-02-07 21:28] LABS: Glucose - Point of Care 169 mg/dl (70-99)
[2025-02-07] MEDS: LANTUS 0.15 UNITS SC (22:31)
[2025-02-07] MEDS: COZAAR 12.5 MG PO (22:31)
[2025-02-07 23:00] VITALS: BP 120/82
[2025-02-08] VITALS (7 sets, daily range): BP systolic 94–124; BP diastolic 60–83; PULSE 93; O2SAT 95; BMI 31.4
[2025-02-08 06:15] LABS: % Basophils 0.4 % (0-2); % Eosinophils 4.4 % (0-6); % Immature Granulocytes 0.4 % (0-0.5); % Lymphocytes 14.7 % (20.5-51.1); % Monocytes 5.8 % (1.7-9.3); % Neutrophils 74.3 % (42.2-75.2); Absolute Eosinophils 0.4 10^3/uL (0-0.7); Absolute Lymphocytes 1.3 10^3/uL (1.2-3.4); Absolute Monocytes 0.5 10^3/uL (0.1-0.6); Absolute Neutrophils 6.8 10^3/uL (1.4-6.5); Hematocrit 44.3 % (39.0-52.0); Hemoglobin 15.3 g/dL (13.0-18.0); Mean Corp Hgb Conc. 34.5 g/dL (33.0-37.0); Mean Corpuscular Hgb 30.7 pg (27.0-31.0); Mean Corpuscular Volume 88.8 fL (80.0-94.0); Nucleated Red Blood Cells % 0 % (-); Platelet Count 164 10^3/uL (130-400); Red Blood Cell Count 4.99 10^6/uL (4.70-6.10); Red Cell Dist. Width 12.6 % (11.5-14.5); White Blood Cell Count 9.1 10^3/uL (4.8-10.8)
[2025-02-08 06:45] LABS: ALT (SGPT) 35 U/L (0-50); AST (SGOT) 22 U/L (17-59); Albumin 3.8 g/dl (3.5-5.0); Alkaline Phosphatase 69 U/L (38-126); Blood Urea Nitrogen 21 mg/dl (9-20); Calcium 9.6 mg/dl (8.4-10.2); Carbon Dioxide 23 mmol/L (22-30); Chloride 106 mmol/L (98-107); Estimated Creatinine Clearance 101 ml/min; Glucose 139 mg/dl (70-99); Potassium 4.1 mmol/L (3.5-5.1); Sodium 138 mmol/L (135-145); Total Bilirubin 0.7 mg/dl (0.2-1.3); Total Protein 6.3 g/dl (6.3-8.2); eGFR > 60.00
[2025-02-08 08:33] LABS: Glucose - Point of Care 148 mg/dl (70-99)
[2025-02-08] MEDS: NOVOLOG FLEXPEN-LOW RESISTANCE SC (08:38)
[2025-02-08] MEDS: VITAMIN B-12 3000 MCG PO (08:40)
[2025-02-08] MEDS: ASPIR LOW (ENTERIC COATED) 81 MG PO (08:40)
[2025-02-08] MEDS: ANTIVERT 12.5 MG PO ×3 (08:40→21:38)
[2025-02-08] MEDS: PLAVIX 75 MG PO (08:40)
[2025-02-08] MEDS: NOVOLOG FLEXPEN 4 UNITS SC ×3 (08:41→19:01)
--- NOTE | 2025-02-08 09:36 | CM ---
CM following re: d/c planning.
At this time, therapy recs for acute rehab.
PMR consult in, awaiting eval.
If pt appropriate for [facility], will proceed with this.
Auth required.
Otherwise, plan will be for [facility], pending auth.
CM continuing to follow.
Await PMR.
[2025-02-08 12:28] LABS: Glucose - Point of Care 252 mg/dl (70-99)
--- NOTE | 2025-02-08 13:28 | W.PN.HOSP.TC ---
Addendum entered and electronically signed by Blair Irvin MD 02/08/25 19:04:
Correction, seen by Dr. Zarate on 02/06, acute inpt rehab recommended. Await transfer
Original Note:
Today's Communication/Plan
-
bowel regiment
Assessment / Plan
Assessment / Plan
#Acute dizziness most likely CVA
As per neuro, Dr. Chen: 'I. Acute R PICA/SCA stroke. Likely etiology�embolization from intracranial large artery atherosclerosis vs cardioembolism. ICAS is associated with a high risk of recurrent stroke.
II. Chronic R pontine infarct.
III. Amnestic MCI
IV. Distal symmetric large fiber polyneuropathy.'
#History of CVA with prior visual prodrome( Chronic lacunar infarcts of the right cerebellum and right basal ganglia.) follows with Dr. Sonia Higuera neurology in [place]
-Consult neurology input appreciated
-MRI brain: Multiple small foci of acute to subacute infarction involving the right cerebellar hemisphere the greatest amount medially and in the inferior to mid hemisphere.
Tiny focus of acute to subacute infarction involving the right lateral medulla.
Focus of old infarction involving the anterior and inferior right thalamus.
Moderate atrophy, advanced for the patient's age of 66 years.
Loss of expected flow-void involving the visualized superior V2 and V3 portions of the right vertebral artery, with diminishment of flow void in the V4 portion of the right vertebral artery. Findings raise concern for slow flow and/or occlusion of
portions of the right vertebral artery. Consider further evaluation with CT or MR angiography of the neck and head.
-Meclizine 12.5 mg 3 times daily scheduled
-stop IV NSS 125 cc an hour
-lipid profile
chol 147/tasj941/ldl 80/HDL 30
HgbA1c 7.4%
-Continue aspirin 81 mg qd, atorvastatin 40 mg daily, Plavix 75 mg daily
#Syncope likely vasovagal due to diarrheal losses
#History of diarrhea x 3 days post Ozempic 2.5 mg use for the first time on Sunday
BP 122/80
-Check orthostatic vitals
-Patient given 500 cc NSS in ER, will stop IV NSS [address] head: No acute intracranial abnormality
Moderate age-related parenchymal atrophy.
Chronic lacunar infarcts of the right cerebellum and right basal ganglia.
No intra- or extra-axial mass, hemorrhage, or fluid collection.
Mild subcortical, deep, and periventricular white matter low-attenuation, compatible with changes of chronic small vessel ischemic disease.
Mucus retention cysts in the bilateral maxillary sinuses and right sphenoid sinus. The mastoid air cells are clear.
#Abdominal pain with acute diarrhea likely secondary to starting Ozempic
Was on prior Mounjaro for 1 year but was having difficulty with constipation
-Started Ozempic 2 weeks ago first injection persistent nausea second injection nausea and watery diarrhea x 3 days
-Will check stool WBC, stool C. difficile, ova parasites due to large consumption of raw sushi on sale and fried fish sandwiches on Sunday from [employer] As per nursing, has not moved bowels since admission. Will order bowel regiment
-IV Zofran as needed
-Patient has never had colonoscopy he does send out Cologuard to GI every few years
CT abdomen pelvis with IV contrast: No evidence of acute inflammatory process in the abdomen or pelvis
chronic shotty retroperitoneal lymph nodes
chronic single tiny calcified gallstone in the gallbladder lumen
HTN�benign
Current concern for orthostatic hypotension
Will check orthostatic vitals
Continue losartan 12.5 mg at bedtime with hold parameters
#DM 2
#Diabetic neuropathy
Accu-Cheks with SSI
glu 122-184
Continue Lantus at 15 units SQ at bedtime instead of 30 units SQ at bedtime while inpatient
Advised patient to stop Ozempic 2 mg subcu and go back to prior Mounjaro but add bowel regimen due to constipation
-Continue NovoLog 4 units with meals
#B12 deficiency
Continue B12 supplement
#Chronic ambulatory dysfunction
#Diabetic neuropathy
Uses walker at baseline
#Class I obesity�BMI 32.9
Patient is currently on Ozempic but with recommendations to switch back to Mounjaro due to side effects however is not making any diet changes
#Chronic snoring
Recommended outpatient sleep study for possible sleep apnea
DVT prophylaxis
SCDs
-Continue Telemetry monitoring
-Continue DAPT for 90 days
at which point neuro recommends continue Plavix and stop ASA
-LDL <70 mg/dL (currently 80)
-Lipitor 40 mg QHS has been ordered
-Outpatient cardiology follow-up (Holter monitoring, ILR)
SNF transfer early next week. PT/OT and Physiatry consulted
Full code
Anticipated Discharge: 24 - 48 hours
Subjective/Interval History
-
Date of Service: February 08, 2025
Patient believes he is improving
Objective Data
-
Labs:
Laboratory Results
02/08/25
05:09
WBC 9.1
Hgb 15.3
Hct 44.3
Plt Count 164
Sodium 138
Potassium 4.1
Chloride 106
Carbon Dioxide 23
BUN 21 H
Creatinine 0.8
Glucose 139 H
Calcium 9.6
Total Bilirubin 0.7
AST 22
ALT 35
Alkaline Phosphatase 69
Vital Signs:
Vital Signs
Temp Pulse Resp BP Pulse Ox
97.5 F 101 18 97/73 93
02/08/25 11:24 02/08/25 11:24 02/08/25 11:24 02/08/25 11:24 02/08/25 11:24
I&O
02/07/25 02/08/25 02/09/25
06:59 06:59 06:59
Intake Total 780 / 780 960 / 960
Output Total 1575 / 1575 925 / 925
Balance -795 / -795
Review of Systems
-
History Source: Patient and Coordinated Provider
Constitutional: Denies Fever
EENT: Reports No Symptoms Reported
Respiratory: Reports No Symptoms
Cardiac: Reports No Symptoms
Abdomen/GI: Reports No Symptoms
Musculoskeletal: Reports No Symptoms
Neuro: Reports Dizzy
Physical Exam
-
General: Well Developed, Well Nourished and No Apparent Distress
HEENT: Normocephalic, Atraumatic and Moist Mucous Membranes
Respiratory: Clear to Auscultation; Negative Wheezes, Rales or Rhonchi
Cardiac: Regular Rhythm and S1/S2
GI: Soft, Nontender and Nondistended
Musculoskeletal: No Clubbing, No Cyanosis and No Edema
Neuro: Awake, Alert and Oriented
[2025-02-08] MEDS: NOVOLOG FLEXPEN-LOW RESISTANCE 3 UNITS SC (14:32)
[2025-02-08 17:51] LABS: Glucose - Point of Care 153 mg/dl (70-99)
[2025-02-08] MEDS: NOVOLOG FLEXPEN-LOW RESISTANCE 1 UNITS SC (18:18)
[2025-02-08] MEDS: LIPITOR 40 MG PO (19:03)
[2025-02-08 21:19] LABS: Glucose - Point of Care 214 mg/dl (70-99)
[2025-02-08] MEDS: COLACE 100 MG PO (21:38)
[2025-02-08] MEDS: LANTUS 0.15 UNITS SC (21:41)
[2025-02-08] MEDS: COZAAR 12.5 MG PO (21:45)
[2025-02-09 00:10] LABS: Albumin 3.57 g/dL (3.75-5.01); Alpha 2 Globulin 0.77 g/dL (0.48-1.05); SPEP IFE Reflex Not Done; Total Protein-Electrophoresis 6.1 g/dL (6.3-8.2)
[2025-02-09 03:00] VITALS: BP 113/80
[2025-02-09 06:00] VITALS: BMI 31.4
[2025-02-09 07:51] VITALS: BP 110/76
[2025-02-09 08:02] LABS: Glucose - Point of Care 139 mg/dl (70-99)
[2025-02-09] MEDS: ANTIVERT 12.5 MG PO (08:36)
[2025-02-09] MEDS: VITAMIN B-12 3000 MCG PO (08:36)
[2025-02-09] MEDS: PLAVIX 75 MG PO (08:36)
[2025-02-09] MEDS: COLACE 100 MG PO (08:36)
[2025-02-09] MEDS: ASPIR LOW (ENTERIC COATED) 81 MG PO (08:36)
[2025-02-09] MEDS: NOVOLOG FLEXPEN-LOW RESISTANCE SC ×2 (08:37→14:10)
[2025-02-09] MEDS: NOVOLOG FLEXPEN 4 UNITS SC (08:38)
--- NOTE | 2025-02-09 10:08 | W.PN.HOSP.TC ---
Today's Communication/Plan
-
Discharge to acute rehab today
Assessment / Plan
Assessment / Plan
#Acute dizziness most likely CVA
As per neuro, Dr. Chen: 'I. Acute R PICA/SCA stroke. Likely etiology�embolization from intracranial large artery atherosclerosis vs cardioembolism. ICAS is associated with a high risk of recurrent stroke.
II. Chronic R pontine infarct.
III. Amnestic MCI
IV. Distal symmetric large fiber polyneuropathy.'
#History of CVA with prior visual prodrome( Chronic lacunar infarcts of the right cerebellum and right basal ganglia.) follows with Dr. Sonia Higuera neurology in [place]
-Consult neurology input appreciated
-MRI brain: Multiple small foci of acute to subacute infarction involving the right cerebellar hemisphere the greatest amount medially and in the inferior to mid hemisphere.
Tiny focus of acute to subacute infarction involving the right lateral medulla.
Focus of old infarction involving the anterior and inferior right thalamus.
Moderate atrophy, advanced for the patient's age of 66 years.
Loss of expected flow-void involving the visualized superior V2 and V3 portions of the right vertebral artery, with diminishment of flow void in the V4 portion of the right vertebral artery. Findings raise concern for slow flow and/or occlusion of
portions of the right vertebral artery. Consider further evaluation with CT or MR angiography of the neck and head.
-Meclizine 12.5 mg 3 times daily scheduled
-stop IV NSS 125 cc an hour
-lipid profile
chol 147/eafm571/ldl 80/HDL 30
HgbA1c 7.4%
-Continue aspirin 81 mg qd, atorvastatin 40 mg daily, Plavix 75 mg daily
#Syncope likely vasovagal due to diarrheal losses
#History of diarrhea x 3 days post Ozempic 2.5 mg use for the first time on Sunday
BP 122/80
-Check orthostatic vitals
-Patient given 500 cc NSS in ER, will stop IV NSS [address] head: No acute intracranial abnormality
Moderate age-related parenchymal atrophy.
Chronic lacunar infarcts of the right cerebellum and right basal ganglia.
No intra- or extra-axial mass, hemorrhage, or fluid collection.
Mild subcortical, deep, and periventricular white matter low-attenuation, compatible with changes of chronic small vessel ischemic disease.
Mucus retention cysts in the bilateral maxillary sinuses and right sphenoid sinus. The mastoid air cells are clear.
#Abdominal pain with acute diarrhea likely secondary to starting Ozempic
Was on prior Mounjaro for 1 year but was having difficulty with constipation
-Started Ozempic 2 weeks ago first injection persistent nausea second injection nausea and watery diarrhea x 3 days
-Will check stool WBC, stool C. difficile, ova parasites due to large consumption of raw sushi on sale and fried fish sandwiches on Sunday from [employer]. As per nursing, has not moved bowels since admission. Will order bowel regiment
-IV Zofran as needed
-Patient has never had colonoscopy he does send out Cologuard to GI every few years
CT abdomen pelvis with IV contrast: No evidence of acute inflammatory process in the abdomen or pelvis
chronic shotty retroperitoneal lymph nodes
chronic single tiny calcified gallstone in the gallbladder lumen
HTN�benign
Current concern for orthostatic hypotension
Will check orthostatic vitals
Continue losartan 12.5 mg at bedtime with hold parameters
#DM 2
#Diabetic neuropathy
Accu-Cheks with SSI
glu [id number]
Continue Lantus at 15 units SQ at bedtime instead of 30 units SQ at bedtime while inpatient
Advised patient to stop Ozempic 2 mg subcu and go back to prior Mounjaro but add bowel regimen due to constipation
-Continue NovoLog 4 units with meals
#B12 deficiency
Continue B12 supplement
#Chronic ambulatory dysfunction
#Diabetic neuropathy
Uses walker at baseline
#Class I obesity�BMI 32.9
Patient is currently on Ozempic but with recommendations to switch back to Mounjaro due to side effects however is not making any diet changes
#Chronic snoring
Recommended outpatient sleep study for possible sleep apnea
DVT prophylaxis
SCDs
-Continue Telemetry monitoring
-Continue DAPT for 90 days
at which point neuro recommends continue Plavix and stop ASA
-LDL <70 mg/dL (currently 80)
-Lipitor 40 mg QHS has been ordered
-Outpatient cardiology follow-up (Holter monitoring, ILR)
DVT ppx - SQ lovenox
Full code
Physical Exam
General: No acute distress
HEENT: Normocephalic, Atraumatic, EOMI, MMM
Respiratory: Clear to Auscultation bilaterally
Cardiac: Normal S1/S2, Regular Rate and Rhythm
GI: Soft, Nontender, Nondistended, Normal Bowel Sounds
Extremities: No Clubbing, Cyanosis, or Edema
Neuro: Nonfocal/Grossly Intact
Psych: Calm, Cooperative
Derm: No Visible lesions
Anticipated Discharge: Today
Subjective/Interval History
-
Date of Service: February 09, 2025
Dizziness improved. No fever, no vomiting.
Objective Data
-
Vital Signs:
Vital Signs
Temp Pulse Resp BP Pulse Ox
97.9 F 97 18 105/73 96
02/09/25 15:00 02/09/25 15:00 02/09/25 15:00 02/09/25 15:00 02/09/25 15:00
I&O
02/08/25 02/09/25 02/10/25
06:59 06:59 06:59
Intake Total 960 / 960 1440 / 1440
Output Total 925 / 925 1974 / 1974 600 / 600
Balance 35 / 35 -535 / -535 -600 / -600
[2025-02-09 10:54] VITALS: BP 105/74
--- NOTE | 2025-02-09 11:04 | CM ---
Addendum entered by Valerie Valdivia 02/09/25 14:45:
Patient seen bedside.
Aware of transfer today, he notified his friend.
IMM completed.
Addendum entered by Valerie Valdivia 02/09/25 14:18:
TC from [facility]
Approved acute rehab
Auth # [id number]
Approved start date today, LCD 02/16/24, NRD 02/16/25
updates to fax# [phone]
[facility] [place]
Report # [phone]

Original Note:
Patient seen bedside.
Bad available at [facility].
[facility] auth initiated with Vania at [facility] auth line.
Clinicals faxed to [phone]
Pended authorization # [id number]
Plan: [facility] once auth obtained.
[2025-02-09 11:13] LABS: Glucose - Point of Care 156 mg/dl (70-99)
--- NOTE | 2025-02-09 11:26 | W.DCSUMMARY ---
Discharge Summary
Discharge Data
Date of Admission: 02/05/25
Date of Discharge: 02/09/25
-
Pending Results: No
Hospital Course
Discharge diagnosis:
Acute cerebellar stroke
Ataxia/dizziness
Fall
Syncope, probable vasovagal from diarrhea
Diarrhea/abdominal pain secondary to Ozempic use
Essential hypertension
Type 2 diabetes
Diabetic neuropathy
Vitamin B12 deficiency
Chronic ambulatory dysfunction
Obesity due to excess calories
Consults: Neurology
Brain MRI:
Multiple small foci of acute to subacute infarction involving the right cerebellar hemisphere the greatest amount medially and in the inferior to mid hemisphere.
Tiny focus of acute to subacute infarction involving the right lateral medulla.
Focus of old infarction involving the anterior and inferior right thalamus.
Moderate atrophy, advanced for the patient's age of 66 years.
Loss of expected flow-void involving the visualized superior V2 and V3 portions of the right vertebral artery, with diminishment of flow void in the V4 portion of the right vertebral artery. Findings raise concern for slow flow and/or occlusion of
portions of the right vertebral artery. Consider further evaluation with CT or MR angiography of the neck and head.
Head/Neck CTA:
Loss of contrast enhancement of most of the right vertebral artery, as described above.
Multifocal narrowing of the V4 portion of the left vertebral artery. 2 focal narrowings of the basilar artery. Diffuse luminal irregularity of the posterior cerebral arteries with focal stenoses of the proximal P1 portions.
No evidence for hemodynamically significant stenosis of the common carotid arteries, carotid bulbs, or proximal internal carotid arteries. No significant narrowing of the cervical portions of the internal carotid arteries or the intracranial
portions of the internal carotid arteries bilaterally.
Moderate narrowing of the proximal M1 portion of the right middle cerebral artery, estimated diameter reduction of 50% or slightly greater.
Hospital course:
64-year-old male with a past medical history of insulin-dependent diabetes, hyperlipidemia, and hypertension who presented to the emergency department with syncope, nausea and diarrhea after switching from Mounjaro to Ozempic, and was found to have
an acute to subacute infarction involving the right cerebellar hemisphere. Patient was seen in conjunction with neurology. Patient is on Plavix 75 mg daily. Neurology recommends adding aspirin 81 mg daily for 90 days through 05/07/25. His
atorvastatin was increased to 40 mg at bedtime. He was started on meclizine 12.5 mg 3 times a day. Echocardiogram was negative for thrombus, negative for PFO. His LDL was 80, hemoglobin A1c 7.4.
For his GI symptoms, he received supportive care.
Patient was seen conjunction with PT, who recommended acute rehab. He is medically stable for discharge to acute rehab. He needs to follow-up with his primary care doctor 1 week after he leaves rehab.
Disposition: Acute rehab
Discharge planning: Required 41 min
Discharge Plan
-
Patient Disposition: Acute Rehab Facility
Discharge Diagnosis/Procedures: Acute cerebellar stroke, dizziness, syncope, diarrhea, diabetes, B12 deficiency
Condition: Fair
Diet: Low Fat, Low Cholesterol and Diabetic, Carb Controlled
Activity: As tolerated
Driving Restrictions: As prior to admission
Activity Restrictions/Additional Instructions:
Neurology recommends taking aspirin 81 mg daily for 90 days through 05/07/25.
Your atorvastatin has been increased to 40 mg daily.
Continue clopidogrel/Plavix 75 mg daily.
Follow-up with your primary care doctor 1 week after you leave rehab.
Referrals:
Bria Williamson MD [Family Provider] - in one week
Prescriptions:
New
atorvastatin 40 mg Tablet
40 mg PO QPM Qty: 0 0RF
meclizine 12.5 mg Tablet
12.5 mg PO TID Qty: 0 0RF
aspirin 81 mg Tablet,Delayed Release (Dr/Ec)
81 mg PO DAILY Qty: 0 0RF
acetaminophen [Tylenol Extra Strength] 500 mg Tablet
1,000 mg PO QIDPRN PRN (Reason: pain or fever) Qty: 0 0RF
Continued
insulin aspart U-100 [Novolog FlexPen U-100 Insulin] 100 unit/mL (3 mL) insulin pen
4 units SC MEALS
Patient Comments:
05/09/2024: Pt stated he takes 30 units, but per latest notes in [facility] he's supposed to be on 4 units with meals.
losartan 25 mg tablet
12.5 mg PO HS Qty: 0 0RF
clopidogrel 75 mg tablet
75 mg PO DAILY
metformin 500 mg tablet extended release 24 hr
500 mg PO BID
cyanocobalamin (vitamin B-12) 3,000 mcg Capsule
3,000 mcg PO DAILY
Ozempic 0.25 mg or 0.5 mg (2 mg/3 mL) pen injector
2 mg SC WE
insulin glargine [Lantus U-100 Insulin] 1,000 UNITS/10 ML solution
20 unit SC HS Qty: 0 0RF
Discontinued
aspirin 325 mg Tablet
325 mg PO .2X WEEKLY
atorvastatin 10 mg tablet
10 mg PO DAILY@1400
Discharge Orders:
Discharge Patient (As Directed); Ordered 02/09/25
Ordered By: Italo Flores
Discharge Date and Time
Discharge Date/Time: 02/09/25 16:30
Print Language: FAROESE
[2025-02-09 12:24] VITALS: BP 103/71; BP 107/77; BP 110/75; BP 115/80; PULSE 112; PULSE 124; PULSE 98; O2SAT 95
[2025-02-09] MEDS: TYLENOL 1000 MG PO (12:28)
[2025-02-09] MEDS: NOVOLOG FLEXPEN SC (14:10)
[2025-02-09 15:00] VITALS: BP 105/73
== END 2025-02-09 16:30 | DRG 66 ==
LOC: 3 WEST ACU 16:03
PROVIDERS: Clinical Nurse Specialist Family Health; Physician Assistant; ADMITTING PHYSICIAN Internal Medicine; ATTENDING PHYSICIAN Family Medicine; CONSULT PHYSICIAN Physical Medicine & Rehabilitation; CONSULT PHYSICIAN Psychiatry & Neurology Neurology; EMERGENCY PHYSICIAN Student in an Organized Health Care Education/Training Program; FAMILY PHYSICIAN Emergency Medicine
DX: I63.40 Cerebral infarction due to embolism of unspecified cerebral artery (principal); Z86.73 Personal history of transient ischemic attack (TIA), and cerebral infarction without residual deficits; E11.42 Type 2 diabetes mellitus with diabetic polyneuropathy; I65.01 Occlusion and stenosis of right vertebral artery; I65.02 Occlusion and stenosis of left vertebral artery; K80.20 Calculus of gallbladder without cholecystitis without obstruction; R10.9 Unspecified abdominal pain; I95.1 Orthostatic hypotension; Z79.85 Long-term (current) use of injectable non-insulin antidiabetic drugs; T38.3X5A Adverse effect of insulin and oral hypoglycemic [antidiabetic] drugs, initial encounter; E53.8 Deficiency of other specified B group vitamins; E66.811 Obesity, class 1; Z68.32 Body mass index [BMI] 32.0-32.9, adult; E78.00 Pure hypercholesterolemia, unspecified; I10 Essential (primary) hypertension; I45.10 Unspecified right bundle-branch block; J34.1 Cyst and mucocele of nose and nasal sinus; G90.9 Disorder of the autonomic nervous system, unspecified; Y93.02 Activity, running; W19.XXXA Unspecified fall, initial encounter; Z79.02 Long term (current) use of antithrombotics/antiplatelets; Z79.4 Long term (current) use of insulin; Z79.82 Long term (current) use of aspirin; Z79.899 Other long term (current) drug therapy; Z80.9 Family history of malignant neoplasm, unspecified; Z82.49 Family history of ischemic heart disease and other diseases of the circulatory system
CPT/HCPCS: 70450; 70496; 70498; 70551; 74177; 80053; 80061; 81003; 82607; 82962; 83036; 83690; 84155; 84165; 84484; 85025; 93005; 93306; 97116; 97167; 97530; 97535; Q9967

== ENCOUNTER 2025-02-19 10:42 | Emergency (ER) | payer OTHER, SELFPAY ==
[2025-02-19 10:48] VITALS: BP 123/77
--- NOTE | 2025-02-19 11:12 | EDRN ---
x-ray asking if ER can add abd xray as he had one ordered at [facility] upstairs and would like to complete it while he is at radiology
[2025-02-19 11:51] VITALS: BP 109/74
[2025-02-19 11:52] VITALS: BP 109/74; BMI 31.9
[2025-02-19 12:00] VITALS: BP 99/79
[2025-02-19 12:34] LABS: % Basophils 0.4 % (0-2); % Eosinophils 4.1 % (0-6); % Immature Granulocytes 0.2 % (0-0.5); % Lymphocytes 17.4 % (20.5-51.1); % Monocytes 6.1 % (1.7-9.3); % Neutrophils 71.8 % (42.2-75.2); Absolute Eosinophils 0.2 10^3/uL (0-0.7); Absolute Monocytes 0.3 10^3/uL (0.1-0.6); Hemoglobin 13.5 g/dL (13.0-18.0); Mean Corp Hgb Conc. 34.6 g/dL (33.0-37.0); Mean Corpuscular Hgb 30.4 pg (27.0-31.0); Mean Corpuscular Volume 87.8 fL (80.0-94.0); Mean Platelet Volume 10.4 fL (7.4-10.4); Nucleated Red Blood Cells % 0 % (-); Platelet Count 157 10^3/uL (130-400); Red Blood Cell Count 4.44 10^6/uL (4.70-6.10); Red Cell Dist. Width 12.4 % (11.5-14.5); White Blood Cell Count 5.6 10^3/uL (4.8-10.8)
--- NOTE | 2025-02-19 12:43 | ED.GENMED ---
History of Present Illness
General
Chief Complaint: Breathing Problem
Source: patient
Exam Limitations: none
Time Seen by Provider: 02/19/25 11:34
History of Present Illness
History of Present Illness:
64-year-old male presents from [facility]. The patient states that he got up earlier than usual. He usually sleeps late but today got up at 9 AM. He states he got rushed out of bed and feels like that is the only reason why he had any symptoms.
The patient states that he currently is asymptomatic. He specifically denies chest pain. No current shortness of breath. No leg swelling. States he does walk. Rehab progress note reviewed from today revealing that he has a history of
orthostatic hypotension and intractable dizziness due to multiple small foci of acute to subacute infarction involving the right cerebellar hemisphere and right lateral medulla with significant vascular disease in the brain
Past History
Past History
ED Past Medical History: CVA, HTN, Hypercholesterolemia, IDDM and Other (Right bundle branch block, diabetic peripheral neuropathy)
ED Past Surgical History: Tonsilectomy
Patient has exhibited threatening behavior?: No
PSI?: No
Social History
Tobacco: Non-smoker
Alcohol: Occasional
Drug: None
Personal: Single
Living: with roommate
Employment: Retired
Family History
Family History: Other (Noncontributory)
Phy Exam
Physical Exam
Physical Exam:
CONSTITUTIONAL Patient alert and oriented to person, place and time. Well-appearing. Vital signs reviewed.
HEAD atraumatic, normocephalic.
EYES eyelids normal to inspection, Extraocular muscles intact, Conjunctiva normal, Sclera normal.
NECK normal range of motion, Trachea midline, no jugular venous distention.
RESPIRATORY CHEST No respiratory distress noted, Chest expansion equal, Bilateral breath sounds clear.
CARDIOVASCULAR regular rate and rhythm, Heart sounds normal.
ABDOMEN abdomen nontender, Bowel sounds normal. No distention.
BACK normal inspection, no obvious deformities
UPPER EXTREMITY range of motion normal, Motor strength normal, no cyanosis, no edema.
LOWER EXTREMITY range of motion normal, Motor strength normal, no cyanosis, no edema.
NEURO Speech normal, No focal motor deficits, Holt coma scale 15, Memory normal, Cranial Nerves intact to screening exam.
SKIN skin warm, dry, and normal in color.
Scores
Heart Failure Risk
Heart Failure Risk Score: Not Applicable
Course
Orders/Labs/Results
Orders:
Orders
02/19/25 10:45
Electrocardiogram (*1) Urgent
Reason for Study: Chest Pain
EKG- Treatment ONCE
02/19/25 12:06
CR Chest - 2 Views Urgent
Comment:
Reason For Exam: dyspnea
02/19/25 12:18
Complete Blood Count/With Diff Urgent
Comprehensive Metabolic Panel Urgent
NT-proBNP Urgent
Troponin I Urgent
Abnormal Lab Results
02/19/25 02/19/25
12:18 14:50
RBC 4.44 L 10^6/uL
(4.70-6.10)
Absolute Lymphs (auto) 1.0 L 10^3/uL
(1.2-3.4)
Lymphocytes % 17.4 L %
(20.5-51.1)
Glucose 145 H mg/dl
(70-99)
ALT 51 H U/L
(0-50)
Total Protein 5.8 L g/dl
(6.3-8.2)
Albumin 3.4 L g/dl
(3.5-5.0)
POC Glucose 119 H mg/dl
(70-99)
02/19/25 12:18
02/19/25 12:18
Vital Signs
Initial and Last Documented VS:
Initial Vital Signs
Temp Pulse Resp BP Pulse Ox
97.4 F 95 18 123/77 97
02/19/25 10:48 02/19/25 10:48 02/19/25 10:48 02/19/25 10:48 02/19/25 10:48
Last Documented Vital Signs
Temp Pulse Resp BP Pulse Ox
97.6 F 82 17 99/79 92
02/19/25 11:52 02/19/25 12:45 02/19/25 12:45 02/19/25 12:00 02/19/25 12:45
MDM/Problems Addressed
Differential Diagnosis Includes:
CHF, PE, pneumothorax, ACS
MDM/Problems Addressed:
Dyspnea
*Radiology
Radiology exam reviewed: all reviewed NAD by ED Provider
*Pulse Oximetry
Patient hypoxic: no
*EKG
Interpreted by ED Provider?: Yes
Interpretation: abnormal
Rate: normal
Rhythm: sinus
[place]: left axis deviation
QRS Pattern: right bundle branch block
Ischemia: non-specific ST changes
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
Rate: normal
Interpretation: normal
Rhythm: sinus
*Critical Care Note
Total Time (30-74mins, 75-104mins- exclusive of procedures): Not Applicable
Data Reviewed
Source: patient
Prescriptions/Medications Considered But Not Given:
Consider D-dimer but no further dyspneic. No tachycardia. No tachypnea. No hemoptysis. No leg swelling
Patient Management
Escalation/DeEscalation of care consider admission/obs:
Patient appears well and offers no further complaints. States he was just rushed this morning. No signs of CHF. Labs and chest x-ray unremarkable. No clinical concerns for PE. Okay for discharge as he will be continually monitored
ED Attending Note
-
Portions of this chart may have been created with voice recognition software.� Occasional wrong word or��sound alike� substitutions may have occurred due to the inherent limitations of voice recognition software.
Discharge Plan
Departure
Patient Disposition: Home (Routine Discharge)
Date of Disposition: 02/19/25
Time of Disposition: 13:39
Patient with high blood pressure during this ER visit?: No
Discharge Problem:
Acute dyspnea
Instructions: Shortness of Breath (Dyspnea) (DC)
Prescriptions:
No Action
insulin aspart U-100 [Novolog FlexPen U-100 Insulin] 100 unit/mL (3 mL) insulin pen
4 units SC MEALS
Patient Comments:
05/09/2024: Pt stated he takes 30 units, but per latest notes in [facility] he's supposed to be on 4 units with meals.
losartan 25 mg tablet
12.5 mg PO HS Qty: 0 0RF
clopidogrel 75 mg tablet
75 mg PO DAILY
cyanocobalamin (vitamin B-12) 3,000 mcg Capsule
3,000 mcg PO DAILY
atorvastatin 40 mg Tablet
40 mg PO QPM Qty: 0 0RF
meclizine 12.5 mg Tablet
12.5 mg PO TID Qty: 0 0RF
aspirin 81 mg Tablet,Delayed Release (Dr/Ec)
81 mg PO DAILY Qty: 0 0RF
acetaminophen [Tylenol Extra Strength] 500 mg Tablet
1,000 mg PO QIDPRN PRN (Reason: pain or fever) Qty: 0 0RF
insulin glargine [Lantus U-100 Insulin] 1,000 UNITS/10 ML solution
20 unit SC HS Qty: 0 0RF
enoxaparin [Lovenox] 40 mg/0.4 mL Syringe
40 mg SC DAILY
midodrine 10 mg Tablet
10 mg PO BID
Januvia 100 mg Tablet
100 mg PO DAILY
Referrals:
Bria Williamson MD [Family Provider] -
Interventions
Interventions:
*Risk Screen - Suicide Last Done: 02/19/25 10:48
*General Assessment Last Done: 02/19/25 10:48
*Neglect/Abuse Screening Last Done: 02/19/25 10:48
*ED- Fall Risk Assessment Last Done: 02/19/25 11:52
*ED COVID-19 Vaccine History Last Done: 02/19/25 11:52
*Nursing Disposition Last Done: 02/19/25 13:55
ED- Cardiac Assessment Last Done: 02/19/25 11:52
ED- Pulmonary Assessment Last Done: 02/19/25 11:52
Discharge Date and Time
Discharge Date/Time: 02/19/25 14:16
Print Language: GUATEMALAN
[2025-02-19 12:53] LABS: ALT (SGPT) 51 U/L (0-50); AST (SGOT) 26 U/L (17-59); Albumin 3.4 g/dl (3.5-5.0); Alkaline Phosphatase 62 U/L (38-126); Blood Urea Nitrogen 16 mg/dl (9-20); Calcium 9.3 mg/dl (8.4-10.2); Carbon Dioxide 28 mmol/L (22-30); Chloride 105 mmol/L (98-107); Estimated Creatinine Clearance 102 ml/min; Glucose 145 mg/dl (70-99); Potassium 4.5 mmol/L (3.5-5.1); Sodium 139 mmol/L (135-145); Total Bilirubin 0.5 mg/dl (0.2-1.3); Total Protein 5.8 g/dl (6.3-8.2); eGFR > 60.00
[2025-02-19 13:05] LABS: NT-proBNP < 20.0 pg/ml; Troponin I < 0.012 ng/ml
--- NOTE | 2025-02-19 13:54 | EDRN ---
this RN called the receiving nurse at [facility] and notified them that the pt was going to be sent back, verbal report given
[2025-02-19 14:53] LABS: Glucose - Point of Care 119 mg/dl (70-99)
== END 2025-02-19 14:16 | disposition home or self-care (01) ==
LOC: EMR 10:42
PROVIDERS: EMERGENCY PHYSICIAN Emergency Medicine; FAMILY PHYSICIAN Emergency Medicine
DX: R06.00 Dyspnea, unspecified (principal)
CPT/HCPCS: 99285; 71046; 80053; 82962; 83880; 84484; 85025; 93005